=== PATIENT | male | born 1955 | race African-American/Black ===

== ENCOUNTER 2019-11-30 10:13 | Emergency (ER) | payer MEDICARE ==
[2019-11-30 11:59] LABS: Hemoglobin 13.9 g/dL (14.0-18.0); Mean Corpuscular HGB CONC 32.7 g/dL (32.0-36.0); Mean Corpuscular Hemoglobin 28.3 pg (27.0-31.0); Mean Corpuscular Volume 86.5 fL (78.0-98.0); Mean Platelet Volume 8.8 fL (7.4-10.4); Platelet Count 281 thou/uL (130-400); RBC Distribution Width 12.7 % (11.5-14.5); Red Blood Cell (RBC) Count 4.93 mill/uL (4.70-6.10); White Blood Cell (WBC) Count 6.8 thou/uL (4.8-10.8)
[2019-11-30 12:08] LABS: PTT 28.3 sec (22.9-36.1); Prothrombin Time 13.5 sec (12.0-14.7)
[2019-11-30 12:24] LABS: ALT (SGPT) 20 U/L (8-55); AST (SGOT) 23 U/L (5-34); Albumin 3.5 g/dL (3.4-4.8); Alkaline Phosphatase 161 U/L (40-110); Anion Gap 10 mmol/L (10-20); BUN (Urea Nitrogen) 14 mg/dL (8.4-25.7); Bilirubin, Total 0.5 mg/dL (0.2-1.2); Calc. Creatinine Clearance 0 mL/min (70-130); Carbon Dioxide 28 mmol/L (23-31); Chloride 104 mmol/L (98-107); Estimated GFR-MDRD 54; Globulin 3.2 g/dL (2.4-3.5); Glucose 238 mg/dL (80-115); Potassium 3.5 mmol/L (3.5-5.1); Protein, Total 6.7 g/dL (5.8-8.1); Sodium 138 mmol/L (136-145)
[2019-11-30 12:30] LABS: Eosinophils 3 % (0-10); Lymphocytes 47 % (21-51); MDiff Complete? YES; Monocytes 10 % (0-10); Neutrophil 36 % (42-75); Platelet Morphology Comment Appears Adequate; RBC Morphology Normal; Reactive Lymphocytes 1 % (0-10)
[2019-11-30] MEDS ORDERED: Iopamidol-370 76% 500 ML 1 ML ONE (13:22)
--- NOTE | 2019-11-30 13:42 | CT ---
EXAM: CT ANGIOGRAM OF THE HEAD AND NECK INDICATION: Dizziness. Patient is on antihypertensive medication. COMPARISON: 11/26/2015 TECHNIQUE: CT angiogram of the head and neck are performed in the axial plane. Three-dimensional refo rmatted images are submitted for interpretation. FINDINGS: NONCONTRAST HEAD CT: No parenchymal hemorrhage No extra-axial hematoma No midline shift Basilar cisterns are patent Brain volume, age-appropriate Cortical rutledge-white matter differentiation is preserved No hydrocephalus Remote lacunar infarct in the right caudate nucleus. Intact calvarium Adequate aeration of the sinuses and mastoid air cells CTA OF THE HEAD WITH AND WITHOUT CONTRAST: POSTCONTRAST CT OF BRAIN: Pathologic enhancement: No pathologic enhancement the brain. Postcontrast soft tissue neck CT: Aerodigestive tract:Aerodigestive tract is patent. No mucosal abnormality. Sinuses: Adequate aeration. Orbits: Bilateral ocular lenses are appropriately located. Both globes are intact. Retrobulbar fat is preserved. Symmetric attenuation the optic nerves and ocular rectus muscles. Salivary glands:Symmetric attenuation Thyroid gland: Appropriate attenuation. Nonspecific fullness of the thyroid isthmus. Nonemergent ultr asound Lymph nodes: No evidence of lymphadenopathy by size criteria. Paraspinal muscles: Symmetric attenuation of the sternocleidomastoid muscles. Appropriate attenuation of the paraspinal muscles. Cervical spine:Multilevel loss of disc space height and osteophyte formation at C3-C4, C4-C5, C5-C6, C6-C7 and C7-T1. Cervical spine vertebral body heights are maintained. No fracture. There are varying degrees of central canal stenosis and neural foraminal narrowing on the basis of degenerative change. Upper mediastinum and lung apices: Chronic changes CTA OF THE NECK WITH CONTRAST: Aorta: Appropriate enhancement and luminal diameter of the aortic arch Right carotid artery: Appropriate enhancement and luminal diameter the origin of the right carotid ar natalie, innominate artery, carotid bifurcation and internal carotid artery. No significant stenosis based upon NASCET criteria Left carotid: Appropriate enhancement and luminal diameter the origin left carotid artery, common car otid artery, carotid bifurcation and internal carotid artery. There is mild atherosclerotic disease in the left carotid bifurcation. No significant stenosis based upon NASCET criteria. Subclavian arteries:Symmetric and patent Vertebral arteries:Patent throughout their course in the neck. Vertebral arteries are codominant. CTA OF THE BRAIN: Intracranial internal carotid arteries:Appropriate enhancement and luminal diameter Anterior circulation: Appropriate enhancement and luminal diameter the A1 segment, M1 segments, proxi mal A2 segments and proximal MCA branches. Intracranial vertebral arteries: Both PICA artery origins have a normal appearance. Both vertebral ar teries supply a diminutive basilar artery. Posterior circulation: Basilar artery is patent. The left [employer]EVELOPMENT MANAGER has a origin. Right P1 segment is patent. IMPRESSION: 1. No hemodynamically significant stenosis, occlusion or aneurysmal formation.
[2019-11-30] MEDS ORDERED: Lisinopril 20 MG TAB PO SCH (14:00)
[2019-11-30] MEDS ORDERED: Amlodipine 5 MG TAB PO SCH (14:00)
--- NOTE | 2019-12-03 14:07 | CT ---
EXAM: CT ANGIOGRAM OF THE HEAD AND NECK INDICATION: Dizziness. Patient is on antihypertensive medication. COMPARISON: 11/26/2015 TECHNIQUE: CT angiogram of the head and neck are performed in the axial plane. Three-dimensional refo rmatted images are submitted for interpretation. FINDINGS: NONCONTRAST HEAD CT: No parenchymal hemorrhage No extra-axial hematoma No midline shift Basilar cisterns are patent Brain volume, age-appropriate Cortical rutledge-white matter differentiation is preserved No hydrocephalus Remote lacunar infarct in the right caudate nucleus. Intact calvarium Adequate aeration of the sinuses and mastoid air cells CTA OF THE HEAD WITH AND WITHOUT CONTRAST: POSTCONTRAST CT OF BRAIN: Pathologic enhancement: No pathologic enhancement the brain. Postcontrast soft tissue neck CT: Aerodigestive tract:Aerodigestive tract is patent. No mucosal abnormality. Sinuses: Adequate aeration. Orbits: Bilateral ocular lenses are appropriately located. Both globes are intact. Retrobulbar fat is preserved. Symmetric attenuation the optic nerves and ocular rectus muscles. Salivary glands:Symmetric attenuation Thyroid gland: Appropriate attenuation. Nonspecific fullness of the thyroid isthmus. Nonemergent ultr asound Lymph nodes: No evidence of lymphadenopathy by size criteria. Paraspinal muscles: Symmetric attenuation of the sternocleidomastoid muscles. Appropriate attenuation of the paraspinal muscles. Cervical spine:Multilevel loss of disc space height and osteophyte formation at C3-C4, C4-C5, C5-C6, C6-C7 and C7-T1. Cervical spine vertebral body heights are maintained. No fracture. There are varying degrees of central canal stenosis and neural foraminal narrowing on the basis of degenerative change. Upper mediastinum and lung apices: Chronic changes CTA OF THE NECK WITH CONTRAST: Aorta: Appropriate enhancement and luminal diameter of the aortic arch Right carotid artery: Appropriate enhancement and luminal diameter the origin of the right carotid ar natalie, innominate artery, carotid bifurcation and internal carotid artery. No significant stenosis based upon NASCET criteria Left carotid: Appropriate enhancement and luminal diameter the origin left carotid artery, common car otid artery, carotid bifurcation and internal carotid artery. There is mild atherosclerotic disease in the left carotid bifurcation. No significant stenosis based upon NASCET criteria. Subclavian arteries:Symmetric and patent Vertebral arteries:Patent throughout their course in the neck. Vertebral arteries are codominant. CTA OF THE BRAIN: Intracranial internal carotid arteries:Appropriate enhancement and luminal diameter Anterior circulation: Appropriate enhancement and luminal diameter the A1 segment, M1 segments, proxi mal A2 segments and proximal MCA branches. Intracranial vertebral arteries: Both PICA artery origins have a normal appearance. Both vertebral ar teries supply a diminutive basilar artery. Posterior circulation: Basilar artery is patent. The left AUT[employer] TRAV[employer] COUNSELOR has a origin. Right P1 segment is patent. IMPRESSION: 1. No hemodynamically significant stenosis, occlusion or aneurysmal formation. Transcribed Date/Time: 12/03/2019 2:06 PM
== END 2019-11-30 14:35 | disposition left against medical advice (07) ==
LOC: ERS 10:13
DX: R42 Dizziness and giddiness (principal); E78.5 Hyperlipidemia, unspecified; E11.9 Type 2 diabetes mellitus without complications; I10 Essential (primary) hypertension; F17.210 Nicotine dependence, cigarettes, uncomplicated; Z79.4 Long term (current) use of insulin; Z79.899 Other long term (current) drug therapy
CPT/HCPCS: 36415; 36416; 70496; 70498; 80053; 84484; 85025; 85610; 85730; 93005; Q9967

== ENCOUNTER 2020-02-29 21:55 | Inpatient (IN) | payer MEDICARE ==
[2020-02-29 22:27] LABS: #Basophils 0.1 thou/uL (0.0-0.2); #Eosinphils 0.3 thou/uL (0.0-0.7); #Lymphocytes 2.9 thou/uL (1.20-3.40); #Neutrophils 2.7 thou/uL (1.40-6.50); %Basophils 1.6 % (0.0-1.0); %Monocytes 13.7 % (0.0-10.0); %Neutrophils 38.7 % (42.0-75.0); Hemoglobin 13.8 g/dL (14.0-18.0); Mean Corpuscular HGB CONC 32.9 g/dL (32.0-36.0); Mean Corpuscular Hemoglobin 28.4 pg (27.0-31.0); Mean Corpuscular Volume 86.3 fL (78.0-98.0); Mean Platelet Volume 9.1 fL (7.4-10.4); Platelet Count 296 thou/uL (130-400); Red Blood Cell (RBC) Count 4.84 mill/uL (4.70-6.10)
[2020-02-29 22:49] LABS: Albumin 3.5 g/dL (3.4-4.8); Alkaline Phosphatase 190 U/L (40-110); Anion Gap 12 mmol/L (10-20); BUN (Urea Nitrogen) 21 mg/dL (8.4-25.7); Bilirubin, Total 0.3 mg/dL (0.2-1.2); Calc. Creatinine Clearance 0 mL/min (70-130); Calcium 8.8 mg/dL (7.8-10.44); Carbon Dioxide 26 mmol/L (23-31); Chloride 106 mmol/L (98-107); Globulin 3.2 g/dL (2.4-3.5); Glucose 123 mg/dL (80-115); Potassium 3.8 mmol/L (3.5-5.1); Protein, Total 6.7 g/dL (5.8-8.1); Sodium 140 mmol/L (136-145)
[2020-02-29 22:50] LABS: ALT (SGPT) 19 U/L (8-55); AST (SGOT) 19 U/L (5-34); Lipase 305 U/L (8-78)
[2020-02-29 23:14] LABS: Bacteria/HPF None Seen HPF (None Seen); Bilirubin Negative (Negative); Blood, Urine Trace (Negative); Clarity Clear (Clear); Glucose, Urine (Dipstick) Normal (Negative); Ketone, Urine Negative (Negative); Leukocyte Negative Leu/uL (Negative); Nitrite Negative (Negative); Protein, Urine (Dipstick) 30 mg/dL (Neg-Trace); RBC/HPF 0-3 HPF (0-3); Specific Gravity, Urine 1.013 (1.002-1.036); Squamous Epithelial 0-3 HPF (0-3); Urobilinogen Normal mg/dL (Less than 2); WBC/HPF None Seen HPF (0-3); pH, Urine 5.5 (5.0-9.0)
[2020-02-29] MEDS ORDERED: Morphine 4 MG/ML VIAL ONE (23:23)
--- NOTE | 2020-02-29 23:43 | CT ---
CT ABDOMEN AND PELVIS WITH IV CONTRAST 02/29/2020 CLINICAL INFORMATION: Diffuse abdomen and back pain. COMPARISON: CTA chest on 10/13/2012 Technique: Multiple contiguous axial CT images are obtained through the abdomen and pelvis with IV contrast. Cor onal reformatted images are provided. FINDINGS: Lower Chest: Minimal dependent atelectasis. Vessels: Vascular calcifications are present in the abdominal aorta and iliac arteries. Abdomen: Portal vein:Not well opacified due to phase of imaging. Gallbladder: Within normal limits for CT imaging. Liver: Normal in appearance for phase of imaging. There is suggestion of a subcentimeter too small to characterize hypodense lesion in the caudate lobe of the liver. This is unchanged compared to CTA chest in 2013. 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 Pancreas: within normal limits. Adrenals: Left adrenal nodule is again seen and unchanged in size or appearance compared to study in 2013. Kidneys: Subcentimeter too small to characterize hypodense lesions in the right kidney. Left kidney h as a normal CT appearance for phase of imaging. Bowel: Postoperative changes of the bowel with evidence of partial colectomy. Postoperative changes o f the rectum are seen. Peritoneum: No ascites or free air; no fluid collection. Mesentery and Retroperitoneum: No enlarged mesenteric or retroperitoneal lymph nodes. Abdominal Wall: Suggestion of a tiny ventral abdominal wall incisional hernia the level of the upper pelvis with portion of the wall of small bowel extending into the defect. Pelvis: Reproductive Organs: Prostate gland is enlarged measuring 5.9 cm in transverse dimensions. Bladder: Incompletely distended. Bones: Degenerative changes in the lumbar spine. There is grade 1 anterolisthesis of L4 on L5 related to facet degenerative changes. IMPRESSION: 1. No acute findings in the abdomen or pelvis. 2. Postoperative changes of loops of bowel as well as evidence of splenectomy 3. Suggestion of small incisional hernia at the level of the upper pelvis containing portion of a ant erior wall of a loop of bowel. No bowel obstruction is present. 4. Enlargement of the prostate gland. 5. Stable left adrenal nodule.
[2020-03-01] MEDS: Sodium Chloride 0.9% 1,000 ML IV SCH ×3 (02:30→12:55)
[2020-03-01 02:32] VITALS: BMI 25.1
[2020-03-01] MEDS ORDERED: Morphine 4 MG/ML VIAL SLOW IVP PRN (02:39)
[2020-03-01] MEDS ORDERED: Sodium Chloride 0.9% 1,000 ML IV SCH (02:45)
[2020-03-01] MEDS ORDERED: HYDROcodone/Acetaminophen 5/325 mg Tablet PO PRN (02:45)
[2020-03-01] MEDS ORDERED: Ondansetron ODT 4 MG TAB SL PRN (02:45)
[2020-03-01] MEDS ORDERED: Acetaminophen 325 MG TAB PO PRN (02:45)
[2020-03-01] MEDS ORDERED: Ondansetron PF 4 MG/2 ML Vial IVP PRN (02:45)
--- NOTE | 2020-03-01 02:51 | PDOC.HHP ---
Hospitalist HPI - History of Present Illness abdominal pain History of Present Illness: Case of an 64y/o male with a pmhx of DM htn and hld who comes to hospital due to abdominal pain. Patient states he was on his usual state of health until yesterday when he started with some abdominal pain 7/10 on intensity, constant, pain is located on epigastric and LLQ area and radiates to the back. Patient has had some nausea without vomiting. Patient states that eating does not make the pain worse. Patient does not have any diarrhea. Patient denies any alcohol use or gallbladder problem history. Patient has multiple surgeries on his abdomen to include a splenectomy and hemicolectomy. Hospitalist ROS - Review of Systems All other systems reviewed; all pertinent +/- noted in HPI/Subj Hospitalist History - Past Surgical History Other Surgical History: splenectomy , colon resection - Family History Family History: reports: diabetes mellitus, hypertension - Social History Smoking Status: Current every day smoker Drugs: reports: marijuana Living Situation: With Family - Exam General Appearance: NAD, awake alert Eye: PERRL, anicteric sclera ENT: normocephalic atraumatic, no oropharyngeal lesions Neck: supple, symmetric, no JVD Heart: RRR, no murmur, no gallops Respiratory: CTAB, no wheezes, no rales Gastrointestinal: soft, non-tender, non-distended Extremities: no cyanosis, no clubbing, no edema Skin: normal turgor, no lesions, no rashes Neurological: cranial nerve grossly intact, normal sensation to touch Musculoskeletal: normal tone, normal strength, no muscle wasting Psychiatric: normal affect, normal behavior, A&O x 3 Hospitalist Results - Labs Result Diagrams: 02/29/20 22:10 02/29/20 22:10 Lab results: WBC 7.0 thou/uL (4.8-10.8) 02/29/20 22:10 Hgb 13.8 g/dL (14.0-18.0) L 02/29/20 22:10 Hct 41.8 % (42.0-52.0) L 02/29/20 22:10 MCV 86.3 fL (78.0-98.0) 02/29/20 22:10 Plt Count 296 thou/uL (130-400) 02/29/20 22:10 Neutrophils % 38.7 % (42.0-75.0) L 02/29/20 22:10 Sodium 140 mmol/L (136-145) 02/29/20 22:10 Potassium 3.8 mmol/L (3.5-5.1) 02/29/20 22:10 Chloride 106 mmol/L (98-107) 02/29/20 22:10 Carbon Dioxide 26 mmol/L (23-31) 02/29/20 22:10 BUN 21 mg/dL (8.4-25.7) 02/29/20 22:10 Creatinine 1.50 mg/dL (0.7-1.3) H 02/29/20 22:10 Glucose 123 mg/dL (80-115) H 02/29/20 22:10 Calcium 8.8 mg/dL (7.8-10.44) 02/29/20 22:10 Total Bilirubin 0.3 mg/dL (0.2-1.2) 02/29/20 22:10 AST 19 U/L (5-34) 02/29/20 22:10 ALT 19 U/L (8-55) 02/29/20 22:10 Alkaline Phosphatase 190 U/L (40-110) H 02/29/20 22:10 Serum Total Protein 6.7 g/dL (5.8-8.1) 02/29/20 22:10 Albumin 3.5 g/dL (3.4-4.8) 02/29/20 22:10 Lipase 305 U/L (8-78) H 02/29/20 22:10 Urine Ketones Negative mg/dL (Negative) 02/29/20 23:02 Urine Blood Trace (Negative) A 02/29/20 23:02 Urine Nitrite Negative (Negative) 02/29/20 23:02 Ur Leukocyte Esterase Negative Kay/uL (Negative) 02/29/20 23:02 Urine RBC 0-3 HPF (0-3) 02/29/20 23:02 Urine WBC None Seen HPF (0-3) 02/29/20 23:02 Ur Squamous Epith Cells 0-3 HPF (0-3) 02/29/20 23:02 Urine Bacteria None Seen HPF (None Seen) 02/29/20 23:02 Hospitalist H&P A/P - Problem (1) Pancreatitis Code(s): K85.90 - ACUTE PANCREATITIS WITHOUT NECROSIS OR INFECTION, UNSP Status: Acute (2) DM type 2 (diabetes mellitus, type 2) Status: Acute (3) HLD (hyperlipidemia) Code(s): E78.5 - HYPERLIPIDEMIA, UNSPECIFIED Status: Acute (4) Hypertension Code(s): I10 - ESSENTIAL (PRIMARY) HYPERTENSION Status: Acute - Plan Plan: Case of an 64y/o male with the stated pmhx who presents with pancreatitis pancreatitis - elevated lipase in the 300s, 3 times from base - ivfs - pain management - npo - unclear etiology, normal gallballder on abd ct - no recent hx of alcohol use - will get lipid panel - abb ct showed no acute pathology dm - acc+ss htn / hld - continue home meds when able to tolerate po
[2020-03-01] MEDS ORDERED: Dextrose 50% Abboject 50 ML SYRINGE SLOW IVP PRN (02:55)
[2020-03-01] MEDS ORDERED: Dextrose 5% in Water 1,000 ML IV PRN (02:55)
[2020-03-01] MEDS ORDERED: HumaLOG 300 UNITS/3 ML VIAL SC PRN (02:55)
[2020-03-01 06:34] LABS: Cardiac Risk 2.2 (Less than 4.5)
[2020-03-01] MEDS: Enoxaparin Sodium 40 MG/0.4 ML SYRINGE SC SCH (08:06)
[2020-03-01] MEDS: Famotidine/PF 20 mg/2ml Vial SLOW IVP SCH ×2 (08:07→20:03)
[2020-03-01] MEDS ORDERED: FLU VACC QS2020-21(6MOS UP)/PF 60 MCG/0.5 ML SYRINGE IM ONE (09:00)
[2020-03-01 10:16] LABS: SARS-CoV-2 MS2 Positive; SARS-CoV-2 N Gene Negative; SARS-CoV-2 S Gene Negative; SARS-CoV-2 by NAA Not Detected (NotDetected); SARS-CoV-2 orf1ab Negative
[2020-03-01] MEDS ORDERED: PROVENTIL INHALER 6.7 G (200 INHALATIONS) INH PRN (11:21)
[2020-03-01] MEDS ORDERED: Amlodipine 10 MG TAB PO SCH (11:30)
[2020-03-01] MEDS ORDERED: Lisinopril/Hydrochlorothiazide 20 mg/12.5 mg Tablet PO SCH (11:30)
[2020-03-01] MEDS: HYDROcodone/Acetaminophen 5/325 mg Tablet PO PRN ×2 (12:53→20:07)
[2020-03-01] MEDS ORDERED: cloNIDine 0.1 MG TAB PO PRN (16:53)
[2020-03-01] MEDS ORDERED: hydrALAZINE 20 MG/ML VIAL SLOW IVP PRN (16:53)
[2020-03-01] MEDS: Morphine 2 MG/ML VIAL SLOW IVP PRN (17:14)
--- NOTE | 2020-03-01 20:30 | PDOC.HOSPP ---
- Subjective Encounter Date: 03/01/20 Encounter Time: 11:00 Subjective: Patient seen and examined for acute pancreatitis. Continues to have abdominal pain without any nausea or vomiting. No bowel movements. No fever, chills or jaundice reported. - Objective Vital Signs & Weight: Vital Signs (12 hours) Temp Pulse Resp BP BP Pulse Ox 03/01/20 20:00 173/93 H 03/01/20 17:14 195/98 H 03/01/20 15:35 98.7 F 69 18 198/95 H 98 03/01/20 12:55 63 03/01/20 12:54 63 192/109 H 03/01/20 12:00 98 03/01/20 11:05 98.6 F 68 18 192/109 H 96 Weight Admit Weight 165 lb 8 oz Weight 165 lb 8 oz I&O: 02/29/20 03/01/20 03/02/20 06:59 06:59 06:59 Intake Total 530 1170 Output Total 300 2500 Balance 230 -1330 Result Diagrams: 02/29/20 22:10 02/29/20 22:10 Additional Labs: Accuchecks 03/01/20 03/01/20 03/01/20 18:34 12:20 06:36 POC Glucose 133 H 101 H 103 H Abnormal Lab Results - Last 48 hrs 02/29/20 22:10: Creatinine 1.50 H, Alkaline Phosphatase 190 H, Albumin/Globulin Ratio 1.1 L, Lipase 305 H 02/29/20 22:10: Hgb 13.8 L, Hct 41.8 L, Neutrophils % 38.7 L, Monocytes % 13.7 H, Basophils % 1.6 H, Monocytes # 1.0 H 02/29/20 23:02: Urine Protein 30 A, Urine Blood Trace A Radiology Reviewed by me: Yes (CT abdomenreviewed) Hospitalist ROS - Review of Systems Respiratory: denies: cough, dry, shortness of breath, hemoptysis, SOB with excertion, pleuritic pain, sputum, wheezing, other Cardiovascular: denies: chest pain, palpitations, orthopnea, paroxysmal noc. dy spnea, edema, light headedness, other - Medication Medications: Active Medications Generic Name Dose Route Start Last Admin Trade Name Freq PRN Reason Stop Dose Admin Hydrocodone Bitart/Acetaminophen 1 tab 03/01/20 02:45 03/01/20 20:07 Hydrocodone/Acetaminophen 5/325 Mg Tablet PO 1 tab Q4H PRN Administration Moderate Pain (4-6) Hydrocodone Bitart/Acetaminophen 2 tab 03/01/20 02:45 03/01/20 03:42 Hydrocodone/Acetaminophen 5/325 Mg Tablet PO 2 tab Q4H PRN Administration Severe Pain (7-10) Clonidine 0.1 mg 03/01/20 16:53 03/01/20 17:14 Clonidine 0.1 Mg Tab PO 0.1 mg Q4H PRN Administration SBP Greater Than 180 Enoxaparin Sodium 40 mg 03/01/20 09:00 03/01/20 08:06 Enoxaparin Sodium 40 Mg/0.4 Ml Syringe SC 40 mg 0900 NOAH Administration Famotidine 20 mg 03/01/20 09:00 03/01/20 20:03 Famotidine/Pf 20 Mg/2ml Vial SLOW IVP 20 mg Q12HR NOAH Administration Sodium Chloride 1,000 mls @ 75 mls/hr 03/01/20 11:20 03/01/20 12:55 Normal Saline 0.9% IV 1,000 mls .[id number] NOAH Administration Morphine Sulfate 2 mg 03/01/20 16:53 03/01/20 17:14 Morphine 2 Mg/Ml Vial SLOW IVP 03/03/20 16:54 2 mg Q4H PRN Administration Severe Pain (7-10) - Exam General - other findings: In distress due to abdominal pain Heart: RRR, no gallops, no rubs, normal peripheral pulses Respiratory: no wheezes, no rales, no ronchi, normal chest expansion Gastrointestinal: soft, normal bowel sounds, no guarding, no rigidity, tender to palpation Extremities: no cyanosis, no clubbing, no edema Extremities - other findings: No Calf tenderness Neurological: no new deficit Psychiatric: normal affect, A&O x 3 Hosp A/P - Plan DVT proph w/SCDs Acute pancreatitis of unclear etiology Hypertension-uncontrolled Left adrenal nodule Diabetes mellitus type II Hypertension Hyperlipidemia CKD stage III Plan: Continue IV fluidsreduced rate. Restart amlodipine, lisinopril due to uncontro lled blood pressure. Pain control. Prn antihypertensives. Gallbladder ultrasound in AM. Recheck lipase in a.m. Continue other medications as above.
[2020-03-02] MEDS: Sodium Chloride 0.9% 1,000 ML IV SCH (00:48)
[2020-03-02] MEDS ORDERED: Ondansetron PF 4 MG/2 ML Vial IVP PRN (02:24)
[2020-03-02] MEDS: Morphine 2 MG/ML VIAL SLOW IVP PRN (02:40)
[2020-03-02 06:48] LABS: Hemoglobin 14.6 g/dL (14.0-18.0); Mean Corpuscular HGB CONC 30.4 g/dL (32.0-36.0); Mean Corpuscular Hemoglobin 25.9 pg (27.0-31.0); Mean Corpuscular Volume 85.4 fL (78.0-98.0); Mean Platelet Volume 9.4 fL (7.4-10.4); Platelet Count 321 thou/uL (130-400); RBC Distribution Width 12.9 % (11.5-14.5)
--- NOTE | 2020-03-02 07:37 | ULT ---
Sonogram right upper quadrant HISTORY: Pancreatitis. Right upper quadrant pain. FINDINGS: Gallbladder has a normal appearance. No stones visible. Common duct is 0.4 cm. Liver has a normal appearance without focal mass or intrahepatic biliary dilatation. No free fluid. Small right renal cyst incidentally noted. IMPRESSION : No acute abnormalities are demonstrated.
[2020-03-02 07:43] LABS: Chloride 107 mmol/L (98-107); Sodium 139 mmol/L (136-145)
[2020-03-02 07:44] LABS: Anion Gap 21 mmol/L (10-20); BUN (Urea Nitrogen) 12 mg/dL (8.4-25.7); Bilirubin, Total 0.7 mg/dL (0.2-1.2); Calc. Creatinine Clearance 59 mL/min (70-130); Calcium 9.3 mg/dL (7.8-10.44); Carbon Dioxide 15 mmol/L (23-31); Glucose 122 mg/dL (80-115); Protein, Total 6.9 g/dL (5.8-8.1)
[2020-03-02 07:45] LABS: ALT (SGPT) 17 U/L (8-55); AST (SGOT) 22 U/L (5-34); Albumin 3.3 g/dL (3.4-4.8); Alkaline Phosphatase 149 U/L (40-110); Globulin 3.6 g/dL (2.4-3.5); Magnesium 1.6 mg/dL (1.6-2.6); Phosphorus 3.1 mg/dL (2.3-4.7)
[2020-03-02 07:46] LABS: Lipase 35 U/L (8-78)
[2020-03-02] MEDS ORDERED: Lisinopril/Hydrochlorothiazide 20 mg/12.5 mg Tablet PO SCH (09:00)
[2020-03-02] MEDS ORDERED: Aspirin 81 mg Enteric Coated Tablet PO SCH (09:00)
[2020-03-02] MEDS ORDERED: Amlodipine 10 MG TAB PO SCH (09:00)
[2020-03-02] MEDS: Famotidine/PF 20 mg/2ml Vial SLOW IVP SCH (09:02)
[2020-03-02] MEDS: Enoxaparin Sodium 40 MG/0.4 ML SYRINGE SC SCH (09:03)
[2020-03-02 09:38] LABS: Band 1 % (5-11); Eosinophils 2 % (0-10); Lymphocytes 24 % (21-51); MDiff Complete? YES; Monocytes 6 % (0-10); Neutrophil 66 % (42-75); Platelet Morphology Comment Appears Adequate; RBC Morphology Normal; Red Blood Cell (RBC) Count 5.64 mill/uL (4.70-6.10); White Blood Cell (WBC) Count 8.3 thou/uL (4.8-10.8)
[2020-03-02] MEDS ORDERED: Sodium Chloride 0.9% 1,000 ML IV SCH (10:44)
[2020-03-02 12:30] VITALS: TEMP 98.2
[2020-03-02 13:28] VITALS: BP 166/86
[2020-03-02] MEDS ORDERED: Famotidine 20 MG TAB PO SCH (21:00)
--- NOTE | 2020-03-03 08:01 | PDOC.DS.DS ---
Provider - Provider Date of Admission: 03/01/20 11:14 Date of Discharge: 03/02/20 Admitting Provider: Isiah Chavira Consultations: None Primary Care Physician: OUT OF TOWN Course - Hospital Course Hospital Course: Patient is a 64-year-old male with diabetes mellitus type 2, hypertension and hyperlipidemia presented to the hospital with abdominal discomfort on 03/01. The abdominal pain was epigastric, moderate in intensity radiating to his back. His lipase on admission was 305 with alkaline phosphatase of 305. His triglycerides were normal. He was kept n.p.o. and was started on IV fluids. His pain was controlled with IV narcotics. CT abdomen was negative for acute findings. Right upper quadrant ultrasound was negative for cholelithiasis. Common duct was 0.4 cm. Abdominal pain has resolved. His lipase was 35. Etiology of p ancreatitis appears to be unclear. He was advised to follow-up with gastroenterology as outpatient. His symptoms improved earlier than anticipated. He was also advised to follow-up with general surgery as outpatient due to history of abdominal surgery in the past. He understands above plan of care. Patient was provided 1 month supply of insulin and hypertension medications since he is currently out of all of his medications. Final diagnosis: Acute pancreatitis of unclear etiology Hypertension-uncontrolled Left adrenal nodule Diabetes mellitus type II Hypertension Hyperlipidemia CKD stage III Resuscitation Status: 03/01/20 02:45 Resuscitation Status Routine Resuscitation Status: FULL: Full Resuscitation - Labs Lab Results: 03/02/20 05:58 03/02/20 05:58 Abnormal Lab Results - Last 48 hrs 03/02/20 05:58: Carbon Dioxide 15 L, Anion Gap 21 H, Creatinine 1.35 H, Alkaline Phosphatase 149 H, Albumin 3.3 L, Globulin 3.6 H, Albumin/Globulin Ratio 0.9 L 03/02/20 05:58: MCH 25.9 L, MCHC 30.4 L, Band Neuts % (Manual) 1 L - Physical Exam Vitals: Weight Admit Weight 165 lb 8 oz Weight 165 lb 8 oz Physical Exam: The patient was seen and examined on the day of discharge. Plan - Discharge Medications Prescriptions: Amlodipine Besylate [amLODIPine Besylate] 10 mg PO DAILY #30 tablet Aspirin [Aspirin EC] 81 mg PO DAILY #30 tablet. Lisinopril/Hydrochlorothiazide [Lisinopril-Hctz 20-12.5 mg Tab] 1 tablet PO DAILY #30 tablet Insulin NPH Hum/Reg Insulin HM [Novolin 70/30] 10 unit SC TID-WM #1 vial Simvastatin [Zocor] 20 mg PO HS #30 tab Home Medications: Medication Instructions Recorded Confirmed Type Albuterol Sulfate [Proair HFA] 2 puff INH Q4HR PRN #0 inh 16 03/01/20 Rx Amlodipine Besylate [amLODIPine 10 mg PO DAILY #30 tablet 03/02/20 Rx Besylate] Aspirin [Aspirin EC] 81 mg PO DAILY #30 tablet. 03/02/20 Rx Insulin NPH Hum/Reg Insulin HM 10 unit SC TID-WM #1 vial 03/02/20 Rx [Novolin 70/30] Lisinopril/Hydrochlorothiazide 1 tablet PO DAILY #30 tablet 03/02/20 Rx [Lisinopril-Hctz 20-12.5 mg Tab] Simvastatin [Zocor] 20 mg PO HS #30 tab 03/02/20 Rx Allergies: No Known Allergies Allergy (Verified 10/06/14 14:03) - Discharge Instructions Discharge Instructions:: BMP after 1 week - PCP to arrange/follow Follow up with general surgery in 1 week - Follow up Plan Referrals: Fernie South MD [Active] - 7 Days (Please call the office to schedule an appointment within 7 days. ) [facility] [MD Not on Staff] - 7 Days (Please call the office to schedule an appointment within 7 days.) Disposition: HOME Quality - Care Measures CORE MEASURES:: N/A
== END 2020-03-02 15:55 | disposition home or self-care (01) | DRG 440 ==
LOC: ERS 21:55 → T4-A 03-01 00:19 → OBSVTOIN 03-01 11:14
PROVIDERS: ADMIT Internal Medicine; ATTEND Internal Medicine
DX: K85.90 Acute pancreatitis without necrosis or infection, unspecified (principal); E11.22 Type 2 diabetes mellitus with diabetic chronic kidney disease; I12.9 Hypertensive chronic kidney disease with stage 1 through stage 4 chronic kidney disease, or unspecified chronic kidney disease; E78.5 Hyperlipidemia, unspecified; F17.200 Nicotine dependence, unspecified, uncomplicated; E27.8 Other specified disorders of adrenal gland; N18.30 Chronic kidney disease, stage 3 unspecified; Z90.49 Acquired absence of other specified parts of digestive tract; Z79.4 Long term (current) use of insulin; Z79.899 Other long term (current) drug therapy; Z20.822 Contact with and (suspected) exposure to COVID-19
CPT/HCPCS: 36415; 36416; 74177; 76705; 80053; 80061; 81003; 81015; 83690; 83735; 84100; 85025; 87635; 96372; 96374; 96375; G0378; J0360; J1650; J2270; J2405; S0028; U0003

== ENCOUNTER 2020-07-10 11:07 | Inpatient (IN) | payer MEDICARE ==
[2020-07-10 12:00] LABS: #Basophils 0.1 thou/uL (0.0-0.2); #Monocytes 0.9 thou/uL (0.11-0.59); #Neutrophils 3.4 thou/uL (1.40-6.50); %Basophils 0.9 % (0.0-1.0); %Eosinophils 0.2 % (0.0-10.0); %Lymphocytes 31.4 % (21.0-51.0); %Monocytes 13.7 % (0.0-10.0); %Neutrophils 53.8 % (42.0-75.0); Hemoglobin 14.8 g/dL (14.0-18.0); Mean Corpuscular HGB CONC 32.9 g/dL (32.0-36.0); Mean Corpuscular Hemoglobin 28.5 pg (27.0-31.0); Mean Corpuscular Volume 86.7 fL (78.0-98.0); Platelet Count 197 thou/uL (130-400); RBC Distribution Width 12.9 % (11.5-14.5); Red Blood Cell (RBC) Count 5.21 mill/uL (4.70-6.10); White Blood Cell (WBC) Count 6.4 thou/uL (4.8-10.8)
[2020-07-10] MEDS ORDERED: Ketorolac Tromethamine 30 MG/ML VIAL ONE (12:07)
[2020-07-10] MEDS ORDERED: Ondansetron PF 4 MG/2 ML Vial ONE (12:07)
[2020-07-10 12:26] LABS: ALT (SGPT) 14 U/L (8-55); AST (SGOT) 25 U/L (5-34); Albumin 3.6 g/dL (3.4-4.8); Alkaline Phosphatase 127 U/L (40-110); Anion Gap 15 mmol/L (10-20); BUN (Urea Nitrogen) 22 mg/dL (8.4-25.7); Bilirubin, Total 0.5 mg/dL (0.2-1.2); Calc. Creatinine Clearance 0 mL/min (70-130); Calcium 9.2 mg/dL (7.8-10.44); Carbon Dioxide 21 mmol/L (23-31); Chloride 103 mmol/L (98-107); Globulin 3.7 g/dL (2.4-3.5); Glucose 133 mg/dL (80-115); Lipase 51 U/L (8-78); Potassium 4.3 mmol/L (3.5-5.1); Protein, Total 7.3 g/dL (5.8-8.1); Sodium 135 mmol/L (136-145)
[2020-07-10 12:42] LABS: CKMB 2.4 ng/mL (0-6.6)
[2020-07-10] MEDS ORDERED: Aspirin Chewable 81 MG TAB ONE (13:54)
[2020-07-10] MEDS ORDERED: hydrALAZINE 20 MG/ML VIAL ONE (13:54)
[2020-07-10] MEDS ORDERED: Iopamidol-370 76% 500 ML 1 ML ONE (14:52)
[2020-07-10 15:32] LABS: Troponin I 0.089 ng/mL (< 0.028)
[2020-07-10] MEDS ORDERED: Dextrose 5% in Water 1,000 ML IV PRN (16:01)
[2020-07-10] MEDS ORDERED: Nitroglycerin 0.4 MG TAB (25 Tab Bottle) SL PRN (16:01)
[2020-07-10] MEDS ORDERED: Dextrose 50% Abboject 50 ML SYRINGE SLOW IVP PRN (16:01)
[2020-07-10] MEDS ORDERED: Sodium Chloride 0.9% 1,000 ML IV SCH (16:15)
[2020-07-10] MEDS: Labetalol HCl 100 MG/20 ML VIAL SLOW IVP PRN ×2 (16:26→20:19)
[2020-07-10] MEDS ORDERED: traMADol HCl 50 MG TAB PO SCH (16:30)
[2020-07-10] MEDS: Sodium Chloride 0.9% 1,000 ML IV SCH (18:00)
[2020-07-10 18:35] LABS: Troponin I 0.074 ng/mL (< 0.028)
[2020-07-10 22:01] LABS: SARS-CoV-2 PCR by NAA DETECTED (NotDetected)
[2020-07-11] MEDS: Acetaminophen 325 MG TAB PO PRN ×3 (04:17→23:58)
[2020-07-11] MEDS: Labetalol HCl 100 MG/20 ML VIAL SLOW IVP PRN ×3 (04:17→17:19)
[2020-07-11 05:31] LABS: Anion Gap 13 mmol/L (10-20); BUN (Urea Nitrogen) 20 mg/dL (8.4-25.7); Calc. Creatinine Clearance 51 mL/min (70-130); Calcium 8.5 mg/dL (7.8-10.44); Carbon Dioxide 19 mmol/L (23-31); Cardiac Risk 3.1 (Less than 4.5); Chloride 106 mmol/L (98-107); Cholesterol 174 mg/dl (< 200 Desired); Glucose 125 mg/dL (80-115); HDL Cholesterol 57 mg/dL (>60 Neg Risk); LDL Cholesterol, Calculated 101 mg/dL; Potassium 3.9 mmol/L (3.5-5.1); Sodium 134 mmol/L (136-145); Triglycerides 79 mg/dL (Less than 150)
[2020-07-11 05:32] LABS: Hemoglobin A1c 6.5 % (4.0-6.0)
[2020-07-11 06:01] LABS: Band 2 % (5-11); Hemoglobin 13.2 g/dL (14.0-18.0); Hypochromia SLIGHT = 6-15 cells (100X) (0-5/hpf); Lymphocytes 30 % (21-51); MDiff Complete? YES; Mean Corpuscular HGB CONC 32.8 g/dL (32.0-36.0); Mean Corpuscular Hemoglobin 28.1 pg (27.0-31.0); Mean Corpuscular Volume 85.7 fL (78.0-98.0); Mean Platelet Volume 9.7 fL (7.4-10.4); Monocytes 10 % (0-10); Neutrophil 55 % (42-75); Platelet Count 165 thou/uL (130-400); Platelet Morphology Comment Appears Adequate; RBC Distribution Width 12.8 % (11.5-14.5); Reactive Lymphocytes 3 % (0-10); Red Blood Cell (RBC) Count 4.69 mill/uL (4.70-6.10); White Blood Cell (WBC) Count 4.6 thou/uL (4.8-10.8)
[2020-07-11] MEDS ORDERED: Aspirin 325 mg Enteric Coated Tablet PO SCH (09:00)
[2020-07-11] MEDS: hydrALAZINE 20 MG/ML VIAL SLOW IVP PRN ×2 (11:28→23:58)
[2020-07-11] MEDS: Sodium Chloride 0.9% 1,000 ML IV SCH (12:28)
[2020-07-11] MEDS ORDERED: Hydrochlorothiazide 25 MG TAB PO SCH (12:45)
[2020-07-11] MEDS ORDERED: Amlodipine 10 MG TAB PO SCH (12:45)
[2020-07-11] MEDS ORDERED: Lisinopril 20 MG TAB PO SCH (12:45)
[2020-07-11] MEDS: HumuLIN 70/30 (300 UNITS/3 ML VIAL) SC SCH ×2 (17:28→19:47)
[2020-07-11] MEDS: Enoxaparin Sodium 40 MG/0.4 ML SYRINGE SC SCH (19:43)
[2020-07-11] MEDS: Atorvastatin Calcium 10 MG TAB PO SCH (19:44)
[2020-07-12] MEDS: Acetaminophen 325 MG TAB PO PRN ×3 (04:28→21:00)
[2020-07-12] MEDS: hydrALAZINE 20 MG/ML VIAL SLOW IVP PRN (04:29)
[2020-07-12] MEDS: Aspirin 81 mg Enteric Coated Tablet PO SCH (07:54)
[2020-07-12] MEDS: Amlodipine 10 MG TAB PO SCH (07:55)
[2020-07-12] MEDS: HumuLIN 70/30 (300 UNITS/3 ML VIAL) SC SCH ×3 (08:03→21:13)
[2020-07-12] MEDS ORDERED: Lisinopril 20 MG TAB PO SCH (09:00)
[2020-07-12] MEDS ORDERED: Hydrochlorothiazide 25 MG TAB PO SCH (09:00)
[2020-07-12] MEDS ORDERED: Amlodipine 10 MG TAB PO SCH (12:31)
[2020-07-12] MEDS: Labetalol HCl 100 MG/20 ML VIAL SLOW IVP PRN (12:41)
[2020-07-12] MEDS: Enoxaparin Sodium 40 MG/0.4 ML SYRINGE SC SCH (21:00)
[2020-07-12] MEDS: Atorvastatin Calcium 10 MG TAB PO SCH (21:00)
[2020-07-13] MEDS: Labetalol HCl 100 MG/20 ML VIAL SLOW IVP PRN (04:00)
[2020-07-13] MEDS: Acetaminophen 325 MG TAB PO PRN ×3 (04:00→21:12)
[2020-07-13] MEDS ORDERED: Morphine 4 MG/ML VIAL SLOW IVP SCH (04:30)
[2020-07-13 06:40] LABS: Bacteria/HPF None Seen HPF (None Seen); Bilirubin Negative (Negative); Blood, Urine 2+ (Negative); Clarity Turbid (Clear); Glucose, Urine (Dipstick) 50 mg/dL (Negative); Ketone, Urine Negative (Negative); Leukocyte Negative Leu/uL (Negative); Nitrite Negative (Negative); Protein, Urine (Dipstick) 300 mg/dL (Neg-Trace); RBC/HPF 0-3 HPF (0-3); Specific Gravity, Urine 1.023 (1.002-1.036); Squamous Epithelial 0-3 HPF (0-3); Urobilinogen Normal mg/dL (Less than 2)
[2020-07-13 06:52] LABS: Urine Culture Reflex Yes Yes
[2020-07-13] MEDS ORDERED: Regadenoson 0.4 MG/5 ML SYRINGE ONE (10:58)
[2020-07-13] MEDS: HumuLIN 70/30 (300 UNITS/3 ML VIAL) SC SCH ×3 (11:08→21:28)
[2020-07-13] MEDS: Lisinopril 20 MG TAB PO SCH (11:09)
[2020-07-13] MEDS: Aspirin 81 mg Enteric Coated Tablet PO SCH (11:09)
[2020-07-13] MEDS: Hydrochlorothiazide 25 MG TAB PO SCH (11:09)
[2020-07-13] MEDS: Amlodipine 10 MG TAB PO SCH (11:09)
[2020-07-13] MEDS: Carvedilol 3.125 MG TAB PO SCH (16:54)
[2020-07-13] MEDS: Atorvastatin Calcium 20 MG TAB PO SCH (21:11)
[2020-07-13] MEDS: Enoxaparin Sodium 40 MG/0.4 ML SYRINGE SC SCH (21:12)
[2020-07-14] MEDS ORDERED: Zolpidem Tartrate 5 MG TAB PO SCH (03:00)
[2020-07-14] MEDS: Labetalol HCl 100 MG/20 ML VIAL SLOW IVP PRN (04:27)
[2020-07-14] MEDS: Acetaminophen 325 MG TAB PO PRN ×4 (04:27→21:15)
[2020-07-14 06:05] LABS: Anion Gap 14 mmol/L (10-20); BUN (Urea Nitrogen) 22 mg/dL (8.4-25.7); Calc. Creatinine Clearance 43 mL/min (70-130); Calcium 9.4 mg/dL (7.8-10.44); Carbon Dioxide 24 mmol/L (23-31); Chloride 95 mmol/L (98-107); Glucose 161 mg/dL (80-115); Potassium 4.1 mmol/L (3.5-5.1); Sodium 129 mmol/L (136-145)
[2020-07-14 06:11] LABS: #Lymphocytes 1.5 thou/uL (1.20-3.40); #Monocytes 0.6 thou/uL (0.11-0.59); #Neutrophils 5.1 thou/uL (1.40-6.50); %Basophils 0.6 % (0.0-1.0); %Eosinophils 0.1 % (0.0-10.0); %Lymphocytes 20.4 % (21.0-51.0); %Neutrophils 70.9 % (42.0-75.0); Hemoglobin 15.2 g/dL (14.0-18.0); Mean Corpuscular HGB CONC 32.4 g/dL (32.0-36.0); Mean Corpuscular Hemoglobin 27.3 pg (27.0-31.0); Mean Corpuscular Volume 84.1 fL (78.0-98.0); Mean Platelet Volume 9.9 fL (7.4-10.4); Platelet Count 188 thou/uL (130-400); RBC Distribution Width 12.7 % (11.5-14.5); Red Blood Cell (RBC) Count 5.57 mill/uL (4.70-6.10); White Blood Cell (WBC) Count 7.2 thou/uL (4.8-10.8)
[2020-07-14] MEDS: Carvedilol 3.125 MG TAB PO SCH (08:10)
[2020-07-14] MEDS: HumuLIN 70/30 (300 UNITS/3 ML VIAL) SC SCH ×3 (08:11→21:16)
[2020-07-14] MEDS: Aspirin 81 mg Enteric Coated Tablet PO SCH (08:11)
[2020-07-14] MEDS: Amlodipine 10 MG TAB PO SCH (08:11)
[2020-07-14] MEDS: Lisinopril 20 MG TAB PO SCH (08:11)
[2020-07-14] MEDS: Hydrochlorothiazide 25 MG TAB PO SCH (08:11)
[2020-07-14] MEDS ORDERED: Vancomycin HCl 1 GM in Sodium Chloride 0.9% 250 ML 250 ML IVPB SCH (09:00)
[2020-07-14] MEDS: Vancomycin 1 GM in Premix Bag 1 BAG IVPB SCH (11:27)
[2020-07-14] MEDS ORDERED: Carvedilol 3.125 MG TAB PO SCH (12:30)
[2020-07-14] MEDS ORDERED: Furosemide 20 MG/2 ML VIAL SLOW IVP SCH (12:30)
[2020-07-14] MEDS ORDERED: Ipratropium/Albuterol Sulfate 4 GM AER IH PRN (13:01)
[2020-07-14] MEDS ORDERED: Ipratropium/Albuterol Sulfate 4 GM AER IH SCH (13:15)
[2020-07-14] MEDS: Carvedilol 6.25 MG TAB PO SCH (16:48)
[2020-07-14] MEDS ORDERED: Sodium Chloride 0.9% 1,000 ML IV SCH (19:15)
[2020-07-14] MEDS: Atorvastatin Calcium 20 MG TAB PO SCH (21:15)
[2020-07-14] MEDS: Enoxaparin Sodium 40 MG/0.4 ML SYRINGE SC SCH (21:15)
[2020-07-14] MEDS: Zolpidem Tartrate 5 MG TAB PO PRN (21:15)
[2020-07-14] MEDS: Morphine 4 MG/ML VIAL SLOW IVP PRN (23:07)
[2020-07-15 06:09] LABS: Anion Gap 16 mmol/L (10-20); BUN (Urea Nitrogen) 32 mg/dL (8.4-25.7); Calc. Creatinine Clearance 37 mL/min (70-130); Calcium 9.6 mg/dL (7.8-10.44); Carbon Dioxide 24 mmol/L (23-31); Chloride 95 mmol/L (98-107); Glucose 161 mg/dL (80-115); Potassium 4.3 mmol/L (3.5-5.1); Sodium 131 mmol/L (136-145)
[2020-07-15] MEDS: Aspirin 81 mg Enteric Coated Tablet PO SCH (08:42)
[2020-07-15] MEDS: Lisinopril 20 MG TAB PO SCH (08:42)
[2020-07-15] MEDS: Amlodipine 10 MG TAB PO SCH (08:42)
[2020-07-15] MEDS: Carvedilol 6.25 MG TAB PO SCH ×2 (08:42→16:59)
[2020-07-15] MEDS: Hydrochlorothiazide 25 MG TAB PO SCH (08:42)
[2020-07-15] MEDS: Vancomycin 1 GM in Premix Bag 1 BAG IVPB SCH (08:46)
[2020-07-15] MEDS: HumuLIN 70/30 (300 UNITS/3 ML VIAL) SC SCH ×3 (08:47→21:14)
[2020-07-15] MEDS: Acetaminophen 325 MG TAB PO PRN (09:47)
[2020-07-15] MEDS ORDERED: Tamsulosin HCl 0.4 MG CAP PO SCH (10:00)
[2020-07-15] MEDS: HumaLOG 300 UNITS/3 ML VIAL SC PRN (11:46)
[2020-07-15] MEDS: Isosorbide Dinitrate 20 MG TAB PO SCH (20:45)
[2020-07-15] MEDS: hydrALAZINE 25 MG TAB PO SCH (20:45)
[2020-07-15] MEDS: Atorvastatin Calcium 20 MG TAB PO SCH (20:45)
[2020-07-15] MEDS: Enoxaparin Sodium 40 MG/0.4 ML SYRINGE SC SCH (20:45)
[2020-07-15] MEDS: Morphine 4 MG/ML VIAL SLOW IVP PRN (20:46)
[2020-07-16 06:25] LABS: Anion Gap 20 mmol/L (10-20); BUN (Urea Nitrogen) 60 mg/dL (8.4-25.7); Calc. Creatinine Clearance 26 mL/min (70-130); Calcium 9.9 mg/dL (7.8-10.44); Carbon Dioxide 23 mmol/L (23-31); Chloride 93 mmol/L (98-107); Glucose 194 mg/dL (80-115); Potassium 5.1 mmol/L (3.5-5.1); Sodium 131 mmol/L (136-145)
[2020-07-16] MEDS: Vancomycin 1 GM in Premix Bag 1 BAG IVPB SCH (07:38)
[2020-07-16] MEDS: Aspirin 81 mg Enteric Coated Tablet PO SCH (07:39)
[2020-07-16] MEDS: hydrALAZINE 25 MG TAB PO SCH ×2 (07:39→19:58)
[2020-07-16] MEDS: Amlodipine 10 MG TAB PO SCH (07:40)
[2020-07-16] MEDS: Isosorbide Dinitrate 20 MG TAB PO SCH ×2 (07:40→19:59)
[2020-07-16] MEDS: Lisinopril 20 MG TAB PO SCH (07:41)
[2020-07-16] MEDS: Carvedilol 6.25 MG TAB PO SCH ×2 (07:41→16:44)
[2020-07-16] MEDS: HumuLIN 70/30 (300 UNITS/3 ML VIAL) SC SCH ×3 (07:42→21:02)
[2020-07-16 08:45] LABS: Vancomycin, Trough 23.8 ug/mL
[2020-07-16] MEDS ORDERED: Furosemide 20 MG TAB PO SCH (09:00)
[2020-07-16] MEDS ORDERED: Tamsulosin HCl 0.4 MG CAP PO SCH (09:00)
[2020-07-16] MEDS: HumaLOG 300 UNITS/3 ML VIAL SC PRN (10:14)
[2020-07-16] MEDS: Dicyclomine 20 MG TAB PO SCH ×3 (12:17→19:57)
[2020-07-16] MEDS: Morphine 4 MG/ML VIAL SLOW IVP PRN (12:17)
[2020-07-16] MEDS ORDERED: GUAIFENESIN SF SOLN 200 MG/10 ML UDCUP PO PRN (15:23)
[2020-07-16] MEDS: CEFAZOLIN 2 GM in Premix Bag 1 BAG IVPB SCH ×2 (16:41→23:16)
[2020-07-16] MEDS ORDERED: Albumin 25% 25 GM/100 ML BOT IVPB SCH (16:45)
[2020-07-16] MEDS: Albumin 25% 25 GM/100 ML BOT IVPB SCH ×2 (17:34→21:59)
[2020-07-16] MEDS: Enoxaparin Sodium 40 MG/0.4 ML SYRINGE SC SCH (19:57)
[2020-07-16] MEDS: Atorvastatin Calcium 20 MG TAB PO SCH (19:57)
[2020-07-17] MEDS: Albumin 25% 25 GM/100 ML BOT IVPB SCH ×2 (04:57→10:34)
[2020-07-17] MEDS ORDERED: Ondansetron PF 4 MG/2 ML Vial IVP PRN (05:21)
[2020-07-17] MEDS: CEFAZOLIN 2 GM in Premix Bag 1 BAG IVPB SCH ×3 (06:16→23:49)
[2020-07-17 06:22] LABS: #Eosinphils 0.1 thou/uL (0.0-0.7); #Lymphocytes 1.4 thou/uL (1.20-3.40); #Monocytes 0.8 thou/uL (0.11-0.59); #Neutrophils 4.8 thou/uL (1.40-6.50); %Basophils 0.4 % (0.0-1.0); %Eosinophils 1.5 % (0.0-10.0); %Lymphocytes 19.1 % (21.0-51.0); %Monocytes 11.6 % (0.0-10.0); %Neutrophils 67.4 % (42.0-75.0); Mean Corpuscular HGB CONC 32.5 g/dL (32.0-36.0); Mean Corpuscular Hemoglobin 28.1 pg (27.0-31.0); Mean Corpuscular Volume 86.6 fL (78.0-98.0); Mean Platelet Volume 9.7 fL (7.4-10.4); Platelet Count 244 thou/uL (130-400); RBC Distribution Width 12.6 % (11.5-14.5); Red Blood Cell (RBC) Count 4.61 mill/uL (4.70-6.10)
[2020-07-17 06:43] LABS: Anion Gap 20 mmol/L (10-20); BUN (Urea Nitrogen) 84 mg/dL (8.4-25.7); Calc. Creatinine Clearance 19 mL/min (70-130); Calcium 9.5 mg/dL (7.8-10.44); Carbon Dioxide 22 mmol/L (23-31); Chloride 92 mmol/L (98-107); Glucose 174 mg/dL (80-115); Potassium 4.2 mmol/L (3.5-5.1); Sodium 130 mmol/L (136-145)
[2020-07-17] MEDS: HumuLIN 70/30 (300 UNITS/3 ML VIAL) SC SCH ×3 (07:35→20:45)
[2020-07-17] MEDS: hydrALAZINE 25 MG TAB PO SCH ×3 (07:40→20:43)
[2020-07-17] MEDS: Carvedilol 6.25 MG TAB PO SCH ×2 (07:41→17:34)
[2020-07-17] MEDS: Aspirin 81 mg Enteric Coated Tablet PO SCH (07:41)
[2020-07-17] MEDS: Dicyclomine 20 MG TAB PO SCH ×4 (07:41→20:42)
[2020-07-17] MEDS: Isosorbide Dinitrate 20 MG TAB PO SCH ×2 (07:41→20:44)
[2020-07-17] MEDS: Sodium Chloride 0.9% 1,000 ML IV SCH ×2 (08:25→23:49)
[2020-07-17] MEDS ORDERED: Isosorbide Dinitrate 20 MG TAB PO SCH (09:00)
[2020-07-17] MEDS ORDERED: Vancomycin HCl 750 MG in Sodium Chloride 0.9% 250 ML 250 ML IVPB SCH (09:00)
[2020-07-17] MEDS ORDERED: Heparin 1,000 UNITS/ML VIAL ONE (09:52)
[2020-07-17] MEDS: HumaLOG 300 UNITS/3 ML VIAL SC PRN (11:58)
[2020-07-17 16:01] LABS: Bacteria/HPF 4+ HPF (None Seen); Bilirubin Negative (Negative); Blood, Urine Negative (Negative); Clarity Clear (Clear); Glucose, Urine (Dipstick) Normal (Negative); Ketone, Urine Trace mg/dL (Negative); Leukocyte Negative Leu/uL (Negative); Nitrite Negative (Negative); Protein, Urine (Dipstick) 70 mg/dL (Neg-Trace); RBC/HPF 0-3 HPF (0-3); Specific Gravity, Urine 1.023 (1.002-1.036); Squamous Epithelial 0-3 HPF (0-3); Urobilinogen Normal mg/dL (Less than 2); WBC/HPF 0-3 HPF (0-3)
[2020-07-17] MEDS: Atorvastatin Calcium 20 MG TAB PO SCH (20:42)
[2020-07-17] MEDS: Enoxaparin Sodium 30 MG/0.3 ML SYRINGE SC SCH (20:42)
[2020-07-18] MEDS: Acetaminophen 325 MG TAB PO PRN (00:03)
[2020-07-18 05:39] LABS: Anion Gap 14 mmol/L (10-20); BUN (Urea Nitrogen) 84 mg/dL (8.4-25.7); Calc. Creatinine Clearance 20 mL/min (70-130); Calcium 9.3 mg/dL (7.8-10.44); Carbon Dioxide 27 mmol/L (23-31); Chloride 94 mmol/L (98-107); Glucose 200 mg/dL (80-115); Sodium 131 mmol/L (136-145)
[2020-07-18 05:48] LABS: Hemoglobin 12.7 g/dL (14.0-18.0); Mean Corpuscular HGB CONC 34.4 g/dL (32.0-36.0); Mean Corpuscular Volume 84.5 fL (78.0-98.0); Mean Platelet Volume 8.9 fL (7.4-10.4); Platelet Count 362 thou/uL (130-400); RBC Distribution Width 12.6 % (11.5-14.5); Red Blood Cell (RBC) Count 4.36 mill/uL (4.70-6.10)
[2020-07-18 06:21] LABS: Band 1 % (5-11); Eosinophils 7 % (0-10); Lymphocytes 20 % (21-51); MDiff Complete? YES; Monocytes 8 % (0-10); Neutrophil 63 % (42-75); Reactive Lymphocytes 1 % (0-10)
[2020-07-18] MEDS: CEFAZOLIN 2 GM in Premix Bag 1 BAG IVPB SCH ×2 (06:49→16:11)
[2020-07-18] MEDS: HumuLIN 70/30 (300 UNITS/3 ML VIAL) SC SCH ×3 (09:23→20:51)
[2020-07-18] MEDS: Dicyclomine 20 MG TAB PO SCH ×4 (09:25→19:51)
[2020-07-18] MEDS: Aspirin 81 mg Enteric Coated Tablet PO SCH (09:25)
[2020-07-18] MEDS: hydrALAZINE 25 MG TAB PO SCH ×2 (09:25→19:49)
[2020-07-18] MEDS: Dexamethasone 4 mg/ml Vial SLOW IVP SCH (09:25)
[2020-07-18] MEDS: Carvedilol 6.25 MG TAB PO SCH ×2 (09:26→16:10)
[2020-07-18] MEDS: Isosorbide Dinitrate 20 MG TAB PO SCH ×2 (09:27→19:50)
[2020-07-18] MEDS: Sodium Chloride 0.9% 1,000 ML IV SCH (12:21)
[2020-07-18] MEDS: HumaLOG 300 UNITS/3 ML VIAL SC PRN ×2 (16:11→20:52)
[2020-07-18] MEDS: Atorvastatin Calcium 20 MG TAB PO SCH (19:49)
[2020-07-18] MEDS: Enoxaparin Sodium 30 MG/0.3 ML SYRINGE SC SCH (19:51)
[2020-07-19] MEDS: CEFAZOLIN 2 GM in Premix Bag 1 BAG IVPB SCH ×4 (00:59→22:03)
[2020-07-19] MEDS: Sodium Chloride 0.9% 1,000 ML IV SCH ×2 (00:59→12:52)
[2020-07-19] MEDS: hydrALAZINE 20 MG/ML VIAL SLOW IVP PRN (04:30)
[2020-07-19 05:24] LABS: #Lymphocytes 1.2 thou/uL (1.20-3.40); #Monocytes 1.3 thou/uL (0.11-0.59); #Neutrophils 10.3 thou/uL (1.40-6.50); %Basophils 0.3 % (0.0-1.0); %Eosinophils 0.1 % (0.0-10.0); %Lymphocytes 9.1 % (21.0-51.0); %Monocytes 10.3 % (0.0-10.0); %Neutrophils 80.2 % (42.0-75.0); Hemoglobin 12.3 g/dL (14.0-18.0); Mean Corpuscular HGB CONC 32.9 g/dL (32.0-36.0); Mean Corpuscular Hemoglobin 27.8 pg (27.0-31.0); Mean Corpuscular Volume 84.4 fL (78.0-98.0); Mean Platelet Volume 8.1 fL (7.4-10.4); Platelet Count 458 thou/uL (130-400); RBC Distribution Width 12.4 % (11.5-14.5); Red Blood Cell (RBC) Count 4.44 mill/uL (4.70-6.10); White Blood Cell (WBC) Count 12.9 thou/uL (4.8-10.8)
[2020-07-19 05:44] LABS: Anion Gap 12 mmol/L (10-20); BUN (Urea Nitrogen) 75 mg/dL (8.4-25.7); Calc. Creatinine Clearance 29 mL/min (70-130); Calcium 9.6 mg/dL (7.8-10.44); Carbon Dioxide 23 mmol/L (23-31); Chloride 104 mmol/L (98-107); Glucose 226 mg/dL (80-115); Potassium 4.4 mmol/L (3.5-5.1); Sodium 135 mmol/L (136-145)
[2020-07-19] MEDS: HumaLOG 300 UNITS/3 ML VIAL SC PRN ×3 (05:51→21:08)
[2020-07-19] MEDS: Aspirin 81 mg Enteric Coated Tablet PO SCH (08:20)
[2020-07-19] MEDS: Dicyclomine 20 MG TAB PO SCH ×4 (08:20→21:05)
[2020-07-19] MEDS: Carvedilol 6.25 MG TAB PO SCH ×2 (08:20→16:29)
[2020-07-19] MEDS: hydrALAZINE 25 MG TAB PO SCH ×2 (08:21→21:06)
[2020-07-19] MEDS: Isosorbide Dinitrate 20 MG TAB PO SCH ×2 (08:21→21:06)
[2020-07-19] MEDS: HumuLIN 70/30 (300 UNITS/3 ML VIAL) SC SCH ×3 (08:22→21:07)
[2020-07-19] MEDS: Dexamethasone 4 mg/ml Vial SLOW IVP SCH (08:27)
[2020-07-19] MEDS: Enoxaparin Sodium 30 MG/0.3 ML SYRINGE SC SCH (21:05)
[2020-07-19] MEDS: Atorvastatin Calcium 20 MG TAB PO SCH (21:05)
[2020-07-20] MEDS: Sodium Chloride 0.9% 1,000 ML IV SCH ×3 (03:26→21:18)
[2020-07-20] MEDS: HumaLOG 300 UNITS/3 ML VIAL SC PRN ×3 (06:02→21:08)
[2020-07-20] MEDS: CEFAZOLIN 2 GM in Premix Bag 1 BAG IVPB SCH ×3 (06:04→22:06)
[2020-07-20] MEDS: HumuLIN 70/30 (300 UNITS/3 ML VIAL) SC SCH ×3 (08:32→21:07)
[2020-07-20] MEDS: hydrALAZINE 25 MG TAB PO SCH ×3 (08:34→21:10)
[2020-07-20] MEDS: Carvedilol 6.25 MG TAB PO SCH ×2 (08:34→17:17)
[2020-07-20] MEDS: Aspirin 81 mg Enteric Coated Tablet PO SCH (08:34)
[2020-07-20] MEDS: Dicyclomine 20 MG TAB PO SCH ×4 (08:34→21:07)
[2020-07-20] MEDS: Isosorbide Dinitrate 20 MG TAB PO SCH ×2 (08:35→21:10)
[2020-07-20] MEDS: Dexamethasone 4 MG TAB PO SCH (08:35)
[2020-07-20 10:04] LABS: Anion Gap 15 mmol/L (10-20); BUN (Urea Nitrogen) 61 mg/dL (8.4-25.7); Calc. Creatinine Clearance 38 mL/min (70-130); Calcium 9.9 mg/dL (7.8-10.44); Carbon Dioxide 23 mmol/L (23-31); Chloride 107 mmol/L (98-107); Glucose 168 mg/dL (80-115); Potassium 4.6 mmol/L (3.5-5.1); Sodium 140 mmol/L (136-145)
[2020-07-20] MEDS: Enoxaparin Sodium 30 MG/0.3 ML SYRINGE SC SCH (21:07)
[2020-07-20] MEDS: Atorvastatin Calcium 20 MG TAB PO SCH (21:07)
[2020-07-21] MEDS: hydrALAZINE 20 MG/ML VIAL SLOW IVP PRN (03:52)
[2020-07-21] MEDS: Labetalol HCl 100 MG/20 ML VIAL SLOW IVP PRN (05:06)
[2020-07-21 06:28] LABS: Anion Gap 11 mmol/L (10-20); BUN (Urea Nitrogen) 54 mg/dL (8.4-25.7); Calc. Creatinine Clearance 40 mL/min (70-130); Calcium 9.7 mg/dL (7.8-10.44); Carbon Dioxide 22 mmol/L (23-31); Chloride 109 mmol/L (98-107); Glucose 249 mg/dL (80-115); Potassium 4.5 mmol/L (3.5-5.1); Sodium 137 mmol/L (136-145)
[2020-07-21] MEDS: HumaLOG 300 UNITS/3 ML VIAL SC PRN ×4 (07:26→22:22)
[2020-07-21] MEDS: CEFAZOLIN 2 GM in Premix Bag 1 BAG IVPB SCH ×3 (07:26→23:17)
[2020-07-21] MEDS: Aspirin 81 mg Enteric Coated Tablet PO SCH (08:06)
[2020-07-21] MEDS: Dexamethasone 4 MG TAB PO SCH (08:06)
[2020-07-21] MEDS: Carvedilol 6.25 MG TAB PO SCH ×2 (08:06→17:11)
[2020-07-21] MEDS: Isosorbide Dinitrate 20 MG TAB PO SCH ×2 (08:07→20:02)
[2020-07-21] MEDS: hydrALAZINE 25 MG TAB PO SCH ×3 (08:07→20:03)
[2020-07-21] MEDS: Dicyclomine 20 MG TAB PO SCH ×4 (08:07→20:03)
[2020-07-21] MEDS: HumuLIN 70/30 (300 UNITS/3 ML VIAL) SC SCH ×3 (08:20→20:03)
[2020-07-21] MEDS: Sodium Chloride 0.9% 1,000 ML IV SCH ×2 (11:24→12:39)
[2020-07-21] MEDS: NIFEdipine XL 60 MG TAB PO SCH (12:39)
[2020-07-21] MEDS: Enoxaparin Sodium 30 MG/0.3 ML SYRINGE SC SCH (20:02)
[2020-07-21] MEDS: Atorvastatin Calcium 20 MG TAB PO SCH (20:03)
[2020-07-22 05:26] LABS: Anion Gap 11 mmol/L (10-20); BUN (Urea Nitrogen) 41 mg/dL (8.4-25.7); Calc. Creatinine Clearance 48 mL/min (70-130); Calcium 9.6 mg/dL (7.8-10.44); Carbon Dioxide 23 mmol/L (23-31); Chloride 110 mmol/L (98-107); Glucose 95 mg/dL (80-115); Potassium 4.3 mmol/L (3.5-5.1); Sodium 140 mmol/L (136-145)
[2020-07-22] MEDS: CEFAZOLIN 2 GM in Premix Bag 1 BAG IVPB SCH ×3 (06:42→22:05)
[2020-07-22] MEDS: Sodium Chloride 0.9% 1,000 ML IV SCH ×2 (07:27→12:34)
[2020-07-22] MEDS: Aspirin 81 mg Enteric Coated Tablet PO SCH (09:55)
[2020-07-22] MEDS: Carvedilol 6.25 MG TAB PO SCH ×3 (09:55→20:58)
[2020-07-22] MEDS: hydrALAZINE 25 MG TAB PO SCH ×3 (09:55→21:02)
[2020-07-22] MEDS: Dexamethasone 4 MG TAB PO SCH (09:56)
[2020-07-22] MEDS: Isosorbide Dinitrate 20 MG TAB PO SCH ×2 (09:56→21:02)
[2020-07-22] MEDS: Dicyclomine 20 MG TAB PO SCH ×4 (09:56→21:02)
[2020-07-22] MEDS: HumuLIN 70/30 (300 UNITS/3 ML VIAL) SC SCH ×3 (09:59→20:53)
[2020-07-22] MEDS: HumaLOG 300 UNITS/3 ML VIAL SC PRN (12:32)
[2020-07-22] MEDS: NIFEdipine XL 60 MG TAB PO SCH (12:32)
[2020-07-22] MEDS: Atorvastatin Calcium 20 MG TAB PO SCH (20:58)
[2020-07-22] MEDS: Enoxaparin Sodium 30 MG/0.3 ML SYRINGE SC SCH (21:01)
[2020-07-23 05:35] LABS: Anion Gap 13 mmol/L (10-20); BUN (Urea Nitrogen) 47 mg/dL (8.4-25.7); Calc. Creatinine Clearance 44 mL/min (70-130); Calcium 9.1 mg/dL (7.8-10.44); Carbon Dioxide 20 mmol/L (23-31); Chloride 108 mmol/L (98-107); Glucose 247 mg/dL (80-115); Potassium 4.8 mmol/L (3.5-5.1); Sodium 136 mmol/L (136-145)
[2020-07-23] MEDS: HumaLOG 300 UNITS/3 ML VIAL SC PRN ×3 (06:00→21:46)
[2020-07-23] MEDS: CEFAZOLIN 2 GM in Premix Bag 1 BAG IVPB SCH ×2 (06:02→17:17)
[2020-07-23] MEDS: HumuLIN 70/30 (300 UNITS/3 ML VIAL) SC SCH ×3 (08:20→21:39)
[2020-07-23] MEDS: Carvedilol 6.25 MG TAB PO SCH ×2 (08:21→17:17)
[2020-07-23] MEDS: Dicyclomine 20 MG TAB PO SCH ×4 (08:22→21:39)
[2020-07-23] MEDS: hydrALAZINE 25 MG TAB PO SCH ×3 (08:22→21:39)
[2020-07-23] MEDS: Isosorbide Dinitrate 20 MG TAB PO SCH ×2 (08:22→21:39)
[2020-07-23] MEDS: Aspirin 81 mg Enteric Coated Tablet PO SCH (08:22)
[2020-07-23] MEDS: Dexamethasone 4 MG TAB PO SCH (08:23)
[2020-07-23] MEDS: Sodium Chloride 0.9% 1,000 ML IV SCH (08:29)
[2020-07-23] MEDS: NIFEdipine XL 60 MG TAB PO SCH (13:06)
[2020-07-23] MEDS: Nicotine 14 MG PATCH TD PRN (14:47)
[2020-07-23] MEDS: Atorvastatin Calcium 20 MG TAB PO SCH (21:39)
[2020-07-23] MEDS: Enoxaparin Sodium 30 MG/0.3 ML SYRINGE SC SCH (21:39)
[2020-07-24] MEDS: CEFAZOLIN 2 GM in Premix Bag 1 BAG IVPB SCH ×4 (00:22→22:53)
[2020-07-24] MEDS: Sodium Chloride 0.9% 1,000 ML IV SCH (05:42)
[2020-07-24] MEDS: Aspirin 81 mg Enteric Coated Tablet PO SCH (07:43)
[2020-07-24] MEDS: hydrALAZINE 25 MG TAB PO SCH ×3 (07:43→21:24)
[2020-07-24] MEDS: Isosorbide Dinitrate 20 MG TAB PO SCH ×2 (07:43→21:24)
[2020-07-24] MEDS: Dexamethasone 4 MG TAB PO SCH (07:44)
[2020-07-24] MEDS: Dicyclomine 20 MG TAB PO SCH ×4 (07:45→21:24)
[2020-07-24] MEDS: Carvedilol 25 MG TAB PO SCH ×2 (07:46→16:40)
[2020-07-24] MEDS: HumuLIN 70/30 (300 UNITS/3 ML VIAL) SC SCH ×3 (07:47→21:24)
[2020-07-24] MEDS: HumaLOG 300 UNITS/3 ML VIAL SC PRN ×2 (11:27→16:41)
[2020-07-24] MEDS: NIFEdipine XL 60 MG TAB PO SCH (11:52)
[2020-07-24] MEDS: Enoxaparin Sodium 40 MG/0.4 ML SYRINGE SC SCH (21:24)
[2020-07-24] MEDS: Atorvastatin Calcium 20 MG TAB PO SCH (21:24)
[2020-07-24] MEDS: Nicotine 14 MG PATCH TD PRN (21:27)
[2020-07-24] MEDS: Zolpidem Tartrate 5 MG TAB PO PRN (21:34)
[2020-07-25 04:51] LABS: Hemoglobin 12.7 g/dL (14.0-18.0); Mean Corpuscular HGB CONC 32.8 g/dL (32.0-36.0); Mean Corpuscular Hemoglobin 28.5 pg (27.0-31.0); Mean Corpuscular Volume 86.9 fL (78.0-98.0); Mean Platelet Volume 7.6 fL (7.4-10.4); Platelet Count 603 thou/uL (130-400); Red Blood Cell (RBC) Count 4.45 mill/uL (4.70-6.10)
[2020-07-25 05:12] LABS: Anion Gap 11 mmol/L (10-20); BUN (Urea Nitrogen) 41 mg/dL (8.4-25.7); Calc. Creatinine Clearance 49 mL/min (70-130); Carbon Dioxide 23 mmol/L (23-31); Chloride 107 mmol/L (98-107); Glucose 142 mg/dL (80-115); Potassium 4.3 mmol/L (3.5-5.1); Sodium 137 mmol/L (136-145)
[2020-07-25 05:32] LABS: Lymphocytes 7 % (21-51); MDiff Complete? YES; Monocytes 4 % (0-10); Neutrophil 89 % (42-75); Platelet Morphology Comment Appears Increased; White Blood Cell (WBC) Count 22.6 thou/uL (4.8-10.8)
[2020-07-25] MEDS: CEFAZOLIN 2 GM in Premix Bag 1 BAG IVPB SCH ×3 (05:58→22:32)
[2020-07-25] MEDS: Sodium Chloride 0.9% 1,000 ML IV SCH (07:30)
[2020-07-25] MEDS: HumuLIN 70/30 (300 UNITS/3 ML VIAL) SC SCH ×3 (07:32→22:28)
[2020-07-25] MEDS: hydrALAZINE 25 MG TAB PO SCH ×3 (07:43→22:31)
[2020-07-25] MEDS: Aspirin 81 mg Enteric Coated Tablet PO SCH (07:44)
[2020-07-25] MEDS: Dexamethasone 4 MG TAB PO SCH (07:44)
[2020-07-25] MEDS: Dicyclomine 20 MG TAB PO SCH ×4 (07:45→22:31)
[2020-07-25] MEDS: Carvedilol 25 MG TAB PO SCH ×2 (07:45→17:15)
[2020-07-25] MEDS: Isosorbide Dinitrate 20 MG TAB PO SCH ×2 (07:45→22:31)
[2020-07-25] MEDS: NIFEdipine XL 60 MG TAB PO SCH (11:13)
[2020-07-25] MEDS: HumaLOG 300 UNITS/3 ML VIAL SC PRN ×2 (11:14→15:03)
[2020-07-25] MEDS: Enoxaparin Sodium 40 MG/0.4 ML SYRINGE SC SCH (22:28)
[2020-07-25] MEDS: Nicotine 14 MG PATCH TD PRN (22:30)
[2020-07-25] MEDS: Atorvastatin Calcium 20 MG TAB PO SCH (22:31)
[2020-07-25] MEDS: Zolpidem Tartrate 5 MG TAB PO PRN (22:31)
[2020-07-25] MEDS: Gabapentin 100 MG CAP PO SCH (22:31)
[2020-07-26 05:05] LABS: Anion Gap 11 mmol/L (10-20); BUN (Urea Nitrogen) 47 mg/dL (8.4-25.7); Calc. Creatinine Clearance 46 mL/min (70-130); Calcium 8.9 mg/dL (7.8-10.44); Carbon Dioxide 23 mmol/L (23-31); Chloride 107 mmol/L (98-107); Glucose 259 mg/dL (80-115); Potassium 4.6 mmol/L (3.5-5.1); Sodium 136 mmol/L (136-145)
[2020-07-26] MEDS: HumaLOG 300 UNITS/3 ML VIAL SC PRN ×3 (05:19→20:51)
[2020-07-26 05:21] LABS: Band 1 % (5-11); Eosinophils 1 % (0-10); Hemoglobin 12.2 g/dL (14.0-18.0); Lymphocytes 10 % (21-51); MDiff Complete? YES; Mean Corpuscular HGB CONC 33.3 g/dL (32.0-36.0); Mean Corpuscular Hemoglobin 29.1 pg (27.0-31.0); Mean Corpuscular Volume 87.5 fL (78.0-98.0); Mean Platelet Volume 7.4 fL (7.4-10.4); Monocytes 9 % (0-10); Neutrophil 79 % (42-75); Platelet Count 556 thou/uL (130-400); Platelet Morphology Comment Appears Increased; Red Blood Cell (RBC) Count 4.21 mill/uL (4.70-6.10); White Blood Cell (WBC) Count 21.4 thou/uL (4.8-10.8)
[2020-07-26] MEDS: CEFAZOLIN 2 GM in Premix Bag 1 BAG IVPB SCH ×3 (06:18→23:19)
[2020-07-26] MEDS: Sodium Chloride 0.9% 1,000 ML IV SCH (06:23)
[2020-07-26] MEDS ORDERED: Cepastat Lozenges 1 LOZ PO PRN (07:58)
[2020-07-26] MEDS ORDERED: Loperamide HCl 2 MG CAP PO PRN (07:58)
[2020-07-26] MEDS ORDERED: Ondansetron ODT 4 MG TAB SL PRN (07:58)
[2020-07-26] MEDS ORDERED: Sodium Chloride 0.65% Nasal 44 ML BOT EA NARE PRN (07:58)
[2020-07-26] MEDS ORDERED: Calcium Carbonate 500 MG ChewTAB PO PRN (07:58)
[2020-07-26] MEDS ORDERED: Loratadine 10 MG TAB PO PRN (07:58)
[2020-07-26] MEDS ORDERED: Senokot S 8.6-50 MG TAB PO PRN (07:58)
[2020-07-26] MEDS: HumuLIN 70/30 (300 UNITS/3 ML VIAL) SC SCH ×3 (08:35→20:50)
[2020-07-26] MEDS: hydrALAZINE 25 MG TAB PO SCH ×3 (08:37→20:49)
[2020-07-26] MEDS: Aspirin 81 mg Enteric Coated Tablet PO SCH (08:37)
[2020-07-26] MEDS: Carvedilol 25 MG TAB PO SCH ×2 (08:38→16:38)
[2020-07-26] MEDS: Dicyclomine 20 MG TAB PO SCH ×4 (08:38→20:50)
[2020-07-26] MEDS: Isosorbide Dinitrate 20 MG TAB PO SCH ×2 (08:38→20:49)
[2020-07-26] MEDS: Dexamethasone 4 MG TAB PO SCH (08:38)
[2020-07-26] MEDS: NIFEdipine XL 60 MG TAB PO SCH (12:19)
[2020-07-26] MEDS: HYDROcodone/Acetaminophen 5/325 mg Tablet PO PRN ×2 (16:46→23:20)
[2020-07-26] MEDS: Atorvastatin Calcium 20 MG TAB PO SCH (20:48)
[2020-07-26] MEDS: Gabapentin 100 MG CAP PO SCH (20:48)
[2020-07-26] MEDS: Enoxaparin Sodium 40 MG/0.4 ML SYRINGE SC SCH (20:52)
[2020-07-26] MEDS: Nicotine 14 MG PATCH TD PRN (23:20)
[2020-07-27 05:39] LABS: Hemoglobin 12.4 g/dL (14.0-18.0); Mean Corpuscular HGB CONC 32.3 g/dL (32.0-36.0); Mean Corpuscular Hemoglobin 27.9 pg (27.0-31.0); Mean Corpuscular Volume 86.4 fL (78.0-98.0); Mean Platelet Volume 7.7 fL (7.4-10.4); Platelet Count 511 thou/uL (130-400); RBC Distribution Width 13.2 % (11.5-14.5); Red Blood Cell (RBC) Count 4.43 mill/uL (4.70-6.10); White Blood Cell (WBC) Count 18.8 thou/uL (4.8-10.8)
[2020-07-27 05:55] LABS: ALT (SGPT) Less than 7 U/L (8-55); AST (SGOT) 16 U/L (5-34); Albumin 2.7 g/dL (3.4-4.8); Alkaline Phosphatase 127 U/L (40-110); Anion Gap 11 mmol/L (10-20); BUN (Urea Nitrogen) 44 mg/dL (8.4-25.7); Bilirubin, Total 0.2 mg/dL (0.2-1.2); CRP (Inflammatory) 0.89 mg/dL (= or < 0.5); Calc. Creatinine Clearance 49 mL/min (70-130); Carbon Dioxide 24 mmol/L (23-31); Chloride 108 mmol/L (98-107); Globulin 2.9 g/dL (2.4-3.5); Glucose 178 mg/dL (80-115); Magnesium 1.8 mg/dL (1.6-2.6); Potassium 4.8 mmol/L (3.5-5.1); Protein, Total 5.6 g/dL (5.8-8.1); Sodium 138 mmol/L (136-145)
[2020-07-27 05:57] LABS: Lymphocytes 8 % (21-51); MDiff Complete? YES; Monocytes 3 % (0-10); Neutrophil 89 % (42-75); Platelet Morphology Comment Appears Increased
[2020-07-27] MEDS: HumaLOG 300 UNITS/3 ML VIAL SC PRN ×2 (06:24→11:52)
[2020-07-27] MEDS: CEFAZOLIN 2 GM in Premix Bag 1 BAG IVPB SCH ×2 (06:25→15:36)
[2020-07-27] MEDS ORDERED: cloNIDine 0.1 MG TAB PO PRN (07:41)
[2020-07-27] MEDS ORDERED: Morphine 4 MG/ML VIAL SLOW IVP PRN (07:44)
[2020-07-27] MEDS: HumuLIN 70/30 (300 UNITS/3 ML VIAL) SC SCH ×4 (08:07→22:30)
[2020-07-27] MEDS: hydrALAZINE 25 MG TAB PO SCH ×3 (08:08→21:14)
[2020-07-27] MEDS: Carvedilol 25 MG TAB PO SCH ×2 (08:09→16:45)
[2020-07-27] MEDS: Isosorbide Dinitrate 20 MG TAB PO SCH ×2 (08:09→21:14)
[2020-07-27] MEDS: Aspirin 81 mg Enteric Coated Tablet PO SCH (08:09)
[2020-07-27] MEDS: NIFEdipine XL 60 MG TAB PO SCH (11:53)
[2020-07-27] MEDS: Enoxaparin Sodium 40 MG/0.4 ML SYRINGE SC SCH (21:14)
[2020-07-27] MEDS: Atorvastatin Calcium 20 MG TAB PO SCH (21:14)
[2020-07-27] MEDS: Gabapentin 100 MG CAP PO SCH (21:14)
[2020-07-28] MEDS: CEFAZOLIN 2 GM in Premix Bag 1 BAG IVPB SCH ×4 (01:31→23:15)
[2020-07-28 05:20] LABS: Anion Gap 12 mmol/L (10-20); BUN (Urea Nitrogen) 41 mg/dL (8.4-25.7); Calc. Creatinine Clearance 46 mL/min (70-130); Calcium 8.9 mg/dL (7.8-10.44); Carbon Dioxide 27 mmol/L (23-31); Chloride 105 mmol/L (98-107); Glucose 148 mg/dL (80-115); Potassium 4.5 mmol/L (3.5-5.1); Sodium 139 mmol/L (136-145)
[2020-07-28 05:21] LABS: Band 2 % (5-11); Eosinophils 1 % (0-10); Hemoglobin 12.4 g/dL (14.0-18.0); Hypochromia SLIGHT = 6-15 cells (100X) (0-5/hpf); Lymphocytes 47 % (21-51); MDiff Complete? YES; Mean Corpuscular HGB CONC 31.7 g/dL (32.0-36.0); Mean Corpuscular Hemoglobin 27.5 pg (27.0-31.0); Mean Corpuscular Volume 86.8 fL (78.0-98.0); Mean Platelet Volume 7.9 fL (7.4-10.4); Monocytes 8 % (0-10); Neutrophil 40 % (42-75); Platelet Count 480 thou/uL (130-400); Platelet Morphology Comment Appears Increased; RBC Distribution Width 13.2 % (11.5-14.5); Reactive Lymphocytes 2 % (0-10); Red Blood Cell (RBC) Count 4.51 mill/uL (4.70-6.10); White Blood Cell (WBC) Count 13.8 thou/uL (4.8-10.8)
[2020-07-28] MEDS: HumuLIN 70/30 (300 UNITS/3 ML VIAL) SC SCH ×2 (08:58→16:56)
[2020-07-28] MEDS: Carvedilol 25 MG TAB PO SCH ×2 (09:21→18:06)
[2020-07-28] MEDS: Aspirin 81 mg Enteric Coated Tablet PO SCH (09:21)
[2020-07-28] MEDS: Isosorbide Dinitrate 20 MG TAB PO SCH ×2 (09:22→19:58)
[2020-07-28] MEDS: hydrALAZINE 25 MG TAB PO SCH ×3 (09:22→19:57)
[2020-07-28] MEDS: NIFEdipine XL 60 MG TAB PO SCH (11:39)
[2020-07-28 12:31] VITALS: BMI 23.9
[2020-07-28] MEDS: Enoxaparin Sodium 40 MG/0.4 ML SYRINGE SC SCH (19:58)
[2020-07-28] MEDS: Atorvastatin Calcium 20 MG TAB PO SCH (19:58)
[2020-07-28] MEDS: Gabapentin 100 MG CAP PO SCH (19:58)
[2020-07-28] MEDS: Nicotine 14 MG PATCH TD PRN (23:14)
[2020-07-29] MEDS: CEFAZOLIN 2 GM in Premix Bag 1 BAG IVPB SCH ×3 (06:28→23:39)
[2020-07-29] MEDS: hydrALAZINE 25 MG TAB PO SCH ×3 (08:46→19:49)
[2020-07-29] MEDS: Aspirin 81 mg Enteric Coated Tablet PO SCH (08:47)
[2020-07-29] MEDS: NIFEdipine XL 90 MG TAB PO SCH (08:47)
[2020-07-29] MEDS: Carvedilol 25 MG TAB PO SCH ×2 (08:47→16:34)
[2020-07-29] MEDS: Isosorbide Dinitrate 20 MG TAB PO SCH ×2 (08:47→19:49)
[2020-07-29 10:24] LABS: Hemoglobin 12.7 g/dL (14.0-18.0); Mean Corpuscular HGB CONC 32.7 g/dL (32.0-36.0); Mean Corpuscular Hemoglobin 28.5 pg (27.0-31.0); Mean Corpuscular Volume 87.1 fL (78.0-98.0); Mean Platelet Volume 7.7 fL (7.4-10.4); Platelet Count 401 thou/uL (130-400); RBC Distribution Width 13.7 % (11.5-14.5); Red Blood Cell (RBC) Count 4.45 mill/uL (4.70-6.10); White Blood Cell (WBC) Count 11.8 thou/uL (4.8-10.8)
[2020-07-29 11:23] LABS: Eosinophils 1 % (0-10); Hypochromia SLIGHT = 6-15 cells (100X) (0-5/hpf); Lymphocytes 27 % (21-51); MDiff Complete? YES; Monocytes 14 % (0-10); Myelocyte 1 % (0-0); Neutrophil 57 % (42-75); Platelet Morphology Comment Appears Adequate; Polychromasia SLIGHT = 2-3 cells (100X) (0-2/hpf); Target Cells SLIGHT = 2-5 cells (100X) (0-1/hpf)
[2020-07-29] MEDS: HumaLOG 300 UNITS/3 ML VIAL SC PRN (16:33)
[2020-07-29] MEDS: Enoxaparin Sodium 40 MG/0.4 ML SYRINGE SC SCH (19:49)
[2020-07-29] MEDS: Atorvastatin Calcium 20 MG TAB PO SCH (19:49)
[2020-07-29] MEDS: Gabapentin 100 MG CAP PO SCH (19:49)
[2020-07-30] MEDS: CEFAZOLIN 2 GM in Premix Bag 1 BAG IVPB SCH (07:34)
[2020-07-30] MEDS: NIFEdipine XL 90 MG TAB PO SCH (08:32)
[2020-07-30] MEDS: Lisinopril 10 MG TAB PO SCH (08:33)
[2020-07-30] MEDS: Aspirin 81 mg Enteric Coated Tablet PO SCH (08:33)
[2020-07-30] MEDS: hydrALAZINE 25 MG TAB PO SCH ×3 (08:33→21:58)
[2020-07-30] MEDS: Isosorbide Dinitrate 20 MG TAB PO SCH ×2 (08:34→21:59)
[2020-07-30] MEDS: Carvedilol 25 MG TAB PO SCH ×2 (08:34→17:33)
[2020-07-30 09:23] LABS: Eosinophils 2 % (0-10); Hemoglobin 12.5 g/dL (14.0-18.0); Lymphocytes 15 % (21-51); MDiff Complete? YES; Mean Corpuscular HGB CONC 33.4 g/dL (32.0-36.0); Mean Corpuscular Hemoglobin 28.7 pg (27.0-31.0); Monocytes 16 % (0-10); Neutrophil 67 % (42-75); Platelet Count 348 thou/uL (130-400); Platelet Morphology Comment Appears Adequate; RBC Distribution Width 13.5 % (11.5-14.5); Red Blood Cell (RBC) Count 4.35 mill/uL (4.70-6.10); White Blood Cell (WBC) Count 12.3 thou/uL (4.8-10.8)
[2020-07-30] MEDS: HumaLOG 300 UNITS/3 ML VIAL SC PRN (12:09)
[2020-07-30 12:28] LABS: Anion Gap 12 mmol/L (10-20); BUN (Urea Nitrogen) 29 mg/dL (8.4-25.7); Calc. Creatinine Clearance 53 mL/min (70-130); Calcium 8.9 mg/dL (7.8-10.44); Carbon Dioxide 24 mmol/L (23-31); Chloride 103 mmol/L (98-107); Glucose 178 mg/dL (80-115); Magnesium 1.8 mg/dL (1.6-2.6); Potassium 3.8 mmol/L (3.5-5.1); Sodium 135 mmol/L (136-145)
[2020-07-30] MEDS ORDERED: cefTRIAXone\\ROCEPHIN 2 GM in Sodium Chloride 0.9% 100 ML IVPB SCH (12:45)
[2020-07-30] MEDS: Atorvastatin Calcium 20 MG TAB PO SCH (21:59)
[2020-07-30] MEDS: Gabapentin 100 MG CAP PO SCH (21:59)
[2020-07-30] MEDS: Enoxaparin Sodium 40 MG/0.4 ML SYRINGE SC SCH (21:59)
[2020-07-31 08:45] LABS: Eosinophils 3 % (0-10); Lymphocytes 15 % (21-51); MDiff Complete? YES; Mean Corpuscular HGB CONC 33.8 g/dL (32.0-36.0); Mean Corpuscular Hemoglobin 29.2 pg (27.0-31.0); Mean Corpuscular Volume 86.2 fL (78.0-98.0); Mean Platelet Volume 7.9 fL (7.4-10.4); Monocytes 10 % (0-10); Neutrophil 72 % (42-75); Platelet Count 290 thou/uL (130-400); RBC Distribution Width 13.6 % (11.5-14.5); Red Blood Cell (RBC) Count 4.11 mill/uL (4.70-6.10); White Blood Cell (WBC) Count 11.2 thou/uL (4.8-10.8)
[2020-07-31] MEDS: Lisinopril 10 MG TAB PO SCH (08:55)
[2020-07-31] MEDS: Carvedilol 25 MG TAB PO SCH (08:55)
[2020-07-31] MEDS: hydrALAZINE 25 MG TAB PO SCH ×2 (08:55→15:26)
[2020-07-31] MEDS: Aspirin 81 mg Enteric Coated Tablet PO SCH (08:55)
[2020-07-31] MEDS: Isosorbide Dinitrate 20 MG TAB PO SCH (08:56)
[2020-07-31] MEDS: HumaLOG 300 UNITS/3 ML VIAL SC PRN (12:13)
[2020-07-31] MEDS ORDERED: cefTRIAXone\\ROCEPHIN 2 GM in Sodium Chloride 0.9% 100 ML IVPB SCH (15:00)
[2020-07-31 15:29] VITALS: BP 162/89; TEMP 99.2
[2020-07-31] MEDS ORDERED: Carvedilol 25 MG TAB PO SCH (17:00)
== END 2020-07-31 17:35 | disposition home health service (06) | DRG 871 ==
LOC: ERS 11:07 → 2SW 13:58 → OBSVTOIN 07-11 16:38 → 2NO 07-30 21:37
PROVIDERS: ADMIT Family Medicine; ATTEND Internal Medicine
PROC: 8E0ZXY6 Isolation (ICD-10-PCS; principal; 2020-07-11)
PROC: 02HV33Z Insertion of Infusion Device into Superior Vena Cava, Percutaneous Approach (ICD-10-PCS; 2020-07-22)
PROC: B548ZZA Ultrasonography of Superior Vena Cava, Guidance (ICD-10-PCS; 2020-07-22)
DX: A41.89 Other specified sepsis (principal); U07.1 COVID-19; J12.82 Pneumonia due to coronavirus disease 2019; J96.01 Acute respiratory failure with hypoxia; I16.1 Hypertensive emergency; I24.8 Other forms of acute ischemic heart disease; K86.1 Other chronic pancreatitis; I42.9 Cardiomyopathy, unspecified; N13.8 Other obstructive and reflux uropathy; N17.9 Acute kidney failure, unspecified; N39.0 Urinary tract infection, site not specified; I47.2 Ventricular tachycardia; I13.0 Hypertensive heart and chronic kidney disease with heart failure and stage 1 through stage 4 chronic kidney disease, or unspecified chronic kidney disease; I50.20 Unspecified systolic (congestive) heart failure; B95.61 Methicillin susceptible Staphylococcus aureus infection as the cause of diseases classified elsewhere; E11.22 Type 2 diabetes mellitus with diabetic chronic kidney disease; F17.200 Nicotine dependence, unspecified, uncomplicated; E78.5 Hyperlipidemia, unspecified; E11.40 Type 2 diabetes mellitus with diabetic neuropathy, unspecified; M48.061 Spinal stenosis, lumbar region without neurogenic claudication; N18.30 Chronic kidney disease, stage 3 unspecified; N40.1 Benign prostatic hyperplasia with lower urinary tract symptoms; B95.62 Methicillin resistant Staphylococcus aureus infection as the cause of diseases classified elsewhere; R94.39 Abnormal result of other cardiovascular function study; J44.9 Chronic obstructive pulmonary disease, unspecified; E86.9 Volume depletion, unspecified; D47.3 Essential (hemorrhagic) thrombocythemia; R19.7 Diarrhea, unspecified; E11.649 Type 2 diabetes mellitus with hypoglycemia without coma; R10.9 Unspecified abdominal pain; Z90.49 Acquired absence of other specified parts of digestive tract; Z90.81 Acquired absence of spleen; Z91.14 Patient's other noncompliance with medication regimen
CPT/HCPCS: 36415; 36416; 36569; 71045; 71046; 71250; 72148; 72158; 74176; 74177; 76770; 78451; 78452; 80048; 80053; 80061; 80202; 81001; 82553; 82728; 83036; 83690; 83735; 84484; 85025; 85379; 86140; 87040; 87077; 87086; 87149; 87186; 87324; 87449; 93005; 93010; 93017; 93306; 93798; 96374; 96375; 96376; A9500; C1751; G0378; J0360; J0690; J0696; J1100; J1644; J1650; J1815; J1885; J1940; J2270; J2405; J2785; J3370; J3490; J8540; P9047; Q9967; U0003; U0005

== ENCOUNTER 2020-08-25 16:50 | Emergency (ER) | payer MEDICARE ==
[~2020-08-25 16:50] MED LIST: Iopamidol-370 76% 500 ML 1 ML ONE
[2020-08-25 17:27] LABS: #Basophils 0.1 thou/uL (0.0-0.2); #Eosinphils 0.1 thou/uL (0.0-0.7); #Lymphocytes 3.8 thou/uL (1.20-3.40); #Monocytes 2.4 thou/uL (0.11-0.59); #Neutrophils 10.7 thou/uL (1.40-6.50); %Basophils 0.5 % (0.0-1.0); %Eosinophils 0.5 % (0.0-10.0); %Lymphocytes 22.3 % (21.0-51.0); %Monocytes 14.2 % (0.0-10.0); %Neutrophils 62.5 % (42.0-75.0); Hemoglobin 11.7 g/dL (14.0-18.0); Mean Corpuscular HGB CONC 34.1 g/dL (32.0-36.0); Mean Corpuscular Hemoglobin 29.3 pg (27.0-31.0); Mean Corpuscular Volume 85.8 fL (78.0-98.0); Mean Platelet Volume 8.5 fL (7.4-10.4); Platelet Count 276 thou/uL (130-400); RBC Distribution Width 13.8 % (11.5-14.5); Red Blood Cell (RBC) Count 3.99 mill/uL (4.70-6.10); White Blood Cell (WBC) Count 17.2 thou/uL (4.8-10.8)
[2020-08-25 17:52] LABS: ALT (SGPT) 9 U/L (8-55); AST (SGOT) 12 U/L (5-34); Albumin 3.5 g/dL (3.4-4.8); Alkaline Phosphatase 104 U/L (40-110); Anion Gap 13 mmol/L (10-20); BUN (Urea Nitrogen) 43 mg/dL (8.4-25.7); Bilirubin, Total 0.5 mg/dL (0.2-1.2); Calc. Creatinine Clearance 0 mL/min (70-130); Calcium 9.3 mg/dL (7.8-10.44); Carbon Dioxide 21 mmol/L (23-31); Chloride 106 mmol/L (98-107); Globulin 3.5 g/dL (2.4-3.5); Glucose 134 mg/dL (80-115); Potassium 4.1 mmol/L (3.5-5.1); Sodium 136 mmol/L (136-145)
[2020-08-25] MEDS ORDERED: Morphine 4 MG/ML VIAL ONE (18:27)
[2020-08-25] MEDS ORDERED: Ondansetron PF 4 MG/2 ML Vial ONE (18:27)
[2020-08-25 19:25] LABS: Bilirubin Negative (Negative); Blood, Urine Negative (Negative); Clarity Clear (Clear); Glucose, Urine (Dipstick) Normal (Negative); Ketone, Urine Negative (Negative); Leukocyte Negative Leu/uL (Negative); Nitrite Negative (Negative); Protein, Urine (Dipstick) 20 mg/dL (Neg-Trace); Specific Gravity, Urine 1.021 (1.002-1.036); Urobilinogen Normal mg/dL (Less than 2)
== END 2020-08-25 21:16 | disposition home or self-care (01) ==
LOC: ERS 16:50
DX: R10.9 Unspecified abdominal pain (principal); R10.812 Left upper quadrant abdominal tenderness; R10.814 Left lower quadrant abdominal tenderness; M54.6 Pain in thoracic spine; M54.5 Low back pain; I10 Essential (primary) hypertension; E11.9 Type 2 diabetes mellitus without complications; F17.210 Nicotine dependence, cigarettes, uncomplicated; D72.829 Elevated white blood cell count, unspecified; N28.9 Disorder of kidney and ureter, unspecified
CPT/HCPCS: 36415; 74177; 80053; 81003; 83690; 85025; 87086; 96374; 96375; J2270; J2405; Q9967

== ENCOUNTER 2022-01-30 01:35 | Emergency (ER) | payer MEDICARE ==
[2022-01-30] MEDS ORDERED: cloNIDine 0.1 MG TAB ONE (02:24)
== END 2022-01-30 02:30 ==
LOC: ERS 01:35
DX: I10 Essential (primary) hypertension (principal); E11.9 Type 2 diabetes mellitus without complications; E78.5 Hyperlipidemia, unspecified; F17.210 Nicotine dependence, cigarettes, uncomplicated
CPT/HCPCS: 99283

== ENCOUNTER 2022-05-08 01:35 | Observation (INO) | payer MEDICARE, SELFPAY ==
[2022-05-08] MEDS ORDERED: Nitroglycerin 2% Ointment 1 INCH/1 GM Packet ONE (02:41)
[2022-05-08] MEDS ORDERED: hydrALAZINE 20 MG/ML VIAL ONE (02:41)
[2022-05-08 02:50] LABS: #Basophils 0.1 thou/uL (0.0-0.2); #Eosinphils 0.4 thou/uL (0.0-0.7); #Lymphocytes 3.8 thou/uL (1.20-3.40); #Neutrophils 3.3 thou/uL (1.40-6.50); %Basophils 1.2 % (0.0-1.0); %Eosinophils 4.6 % (0.0-10.0); %Lymphocytes 44.2 % (21.0-51.0); %Monocytes 11.5 % (0.0-10.0); %Neutrophils 38.4 % (42.0-75.0); Hemoglobin 14.3 g/dL (14.0-18.0); Mean Corpuscular Hemoglobin 28.8 pg (27.0-31.0); Mean Corpuscular Volume 87.3 fl (78.0-98.0); Mean Platelet Volume 9.7 fL (7.4-10.4); Platelet Count 247 10x3/uL (130-400); RBC Distribution Width 12.4 % (11.5-14.5); Red Blood Cell (RBC) Count 4.96 mill/uL (4.70-6.10); White Blood Cell (WBC) Count 8.7 10x3/uL (4.8-10.8)
[2022-05-08 04:04] LABS: ALT (SGPT) 20 U/L (8-55); AST (SGOT) 26 U/L (5-34); Albumin 3.7 g/dL (3.4-4.8); Alkaline Phosphatase 166 U/L (40-110); Anion Gap 20 mmol/L (10-20); BUN (Urea Nitrogen) 25 mg/dL (8.4-25.7); Bilirubin, Total 0.2 mg/dL (0.2-1.2); Calc. Creatinine Clearance 0 mL/min (70-130); Calcium 9.5 mg/dL (7.8-10.44); Carbon Dioxide 11 mmol/L (23-31); Chloride 115 mmol/L (98-107); Estimated GFR 40; Globulin 3.8 g/dL (2.4-3.5); Glucose 170 mg/dL (80-115); Lipase 69 U/L (8-78); Protein, Total 7.5 g/dL (5.8-8.1); Sodium 141 mmol/L (136-145)
[2022-05-08] MEDS ORDERED: Ondansetron ODT 4 MG TAB SL PRN (04:45)
[2022-05-08] MEDS ORDERED: Ondansetron PF 4 MG/2 ML Vial IVP PRN (04:45)
[2022-05-08] MEDS ORDERED: Acetaminophen 325 MG TAB PO PRN (04:45)
[2022-05-08] MEDS ORDERED: Senokot S 8.6-50 MG TAB PO PRN (05:30)
[2022-05-08] MEDS ORDERED: Dextrose 5% in Water 1,000 ML IV PRN (05:33)
[2022-05-08] MEDS ORDERED: Dextrose 50% Abboject 50 ML SYRINGE SLOW IVP PRN (05:33)
[2022-05-08] MEDS ORDERED: Sodium Bicarbonate 50 MEQ in Sodium Chloride 0.45% 1,000 ML IV SCH (07:00)
[2022-05-08 07:08] LABS: Lactic Acid 1.3 mmol/L (0.5-2.2)
[2022-05-08 07:21] LABS: Troponin I 0.026 ng/mL (< 0.028)
[2022-05-08 07:50] VITALS: BMI 24.5
[2022-05-08] MEDS: hydrALAZINE 25 MG TAB PO SCH ×3 (09:11→21:48)
[2022-05-08] MEDS: Famotidine 20 MG TAB PO SCH (09:11)
[2022-05-08] MEDS: Isosorbide Dinitrate 20 MG TAB PO SCH ×2 (09:11→21:48)
[2022-05-08] MEDS: Carvedilol 25 MG TAB PO SCH ×2 (09:11→17:53)
[2022-05-08] MEDS: NIFEdipine XL 90 MG TAB PO SCH (09:11)
[2022-05-08] MEDS: Heparin 5,000 UNITS/ML VIAL SC SCH ×3 (09:11→21:49)
[2022-05-08] MEDS: Aspirin 81 mg Enteric Coated Tablet PO SCH (09:11)
[2022-05-08 09:13] LABS: Anion Gap 14 mmol/L (10-20); BUN (Urea Nitrogen) 22 mg/dL (8.4-25.7); Calc. Creatinine Clearance 45 mL/min (70-130); Calcium 9.4 mg/dL (7.8-10.44); Carbon Dioxide 20 mmol/L (23-31); Chloride 108 mmol/L (98-107); Estimated GFR 44; Glucose 211 mg/dL (80-115); Potassium 4.1 mmol/L (3.5-5.1); Sodium 138 mmol/L (136-145)
[2022-05-08 09:31] LABS: Troponin I 0.026 ng/mL (< 0.028)
[2022-05-08] MEDS: HumaLOG 300 UNITS/3 ML VIAL SC PRN ×2 (11:04→18:08)
[2022-05-08 12:05] LABS: Anion Gap 12 mmol/L (10-20); BUN (Urea Nitrogen) 24 mg/dL (8.4-25.7); Calc. Creatinine Clearance 44 mL/min (70-130); Calcium 9.1 mg/dL (7.8-10.44); Carbon Dioxide 21 mmol/L (23-31); Chloride 110 mmol/L (98-107); Estimated GFR 43; Glucose 147 mg/dL (80-115); Potassium 4.1 mmol/L (3.5-5.1); Sodium 139 mmol/L (136-145)
[2022-05-08] MEDS ORDERED: Atorvastatin Calcium 10 MG TAB PO SCH (21:00)
[2022-05-09 05:16] LABS: Hemoglobin 13.2 g/dL (14.0-18.0); Mean Corpuscular HGB CONC 33.9 g/dL (32.0-36.0); Mean Corpuscular Hemoglobin 29.4 pg (27.0-31.0); Mean Corpuscular Volume 86.7 fl (78.0-98.0); Mean Platelet Volume 8.7 fL (7.4-10.4); Platelet Count 290 10x3/uL (130-400); RBC Distribution Width 12.2 % (11.5-14.5); Red Blood Cell (RBC) Count 4.51 mill/uL (4.70-6.10); White Blood Cell (WBC) Count 8.4 10x3/uL (4.8-10.8)
[2022-05-09 05:26] LABS: Anion Gap 12 mmol/L (10-20); BUN (Urea Nitrogen) 29 mg/dL (8.4-25.7); Calc. Creatinine Clearance 34 mL/min (70-130); Calcium 9.1 mg/dL (7.8-10.44); Carbon Dioxide 22 mmol/L (23-31); Chloride 108 mmol/L (98-107); Estimated GFR 32; Glucose 147 mg/dL (80-115); Sodium 138 mmol/L (136-145)
[2022-05-09 06:09] LABS: Eosinophils 4 % (0-10); Lymphocytes 29 % (21-51); MDiff Complete? YES; Monocytes 7 % (0-10); Neutrophil 60 % (42-75); Platelet Morphology Comment Appears Adequate; RBC Morphology Normal
[2022-05-09] MEDS: hydrALAZINE 25 MG TAB PO SCH ×2 (08:16→14:51)
[2022-05-09] MEDS: Heparin 5,000 UNITS/ML VIAL SC SCH ×2 (08:16→14:52)
[2022-05-09] MEDS ORDERED: Regadenoson 0.4 MG/5 ML SYRINGE ONE (09:54)
[2022-05-09] MEDS: NIFEdipine XL 90 MG TAB PO SCH (10:54)
[2022-05-09] MEDS: Aspirin 81 mg Enteric Coated Tablet PO SCH (10:54)
[2022-05-09] MEDS: Famotidine 20 MG TAB PO SCH (10:55)
[2022-05-09] MEDS: Isosorbide Dinitrate 20 MG TAB PO SCH (10:55)
[2022-05-09] MEDS: Carvedilol 25 MG TAB PO SCH (10:55)
[2022-05-09] MEDS: HumaLOG 300 UNITS/3 ML VIAL SC PRN (11:22)
[2022-05-09 12:56] VITALS: BP 135/63; TEMP 97.5
== END 2022-05-09 15:32 ==
LOC: ERS 01:35 → 2NO 04:38
PROVIDERS: ADMIT Internal Medicine; ATTEND Internal Medicine
DX: R07.2 Precordial pain (principal); I13.0 Hypertensive heart and chronic kidney disease with heart failure and stage 1 through stage 4 chronic kidney disease, or unspecified chronic kidney disease; E11.22 Type 2 diabetes mellitus with diabetic chronic kidney disease; N18.31 Chronic kidney disease, stage 3a; I50.20 Unspecified systolic (congestive) heart failure; E11.10 Type 2 diabetes mellitus with ketoacidosis without coma; E78.2 Mixed hyperlipidemia; F17.210 Nicotine dependence, cigarettes, uncomplicated; I08.1 Rheumatic disorders of both mitral and tricuspid valves; R94.39 Abnormal result of other cardiovascular function study; I42.9 Cardiomyopathy, unspecified; Z86.16 Personal history of COVID-19; Z79.4 Long term (current) use of insulin; Z79.82 Long term (current) use of aspirin; Z79.899 Other long term (current) drug therapy; Z90.49 Acquired absence of other specified parts of digestive tract; Z89.022 Acquired absence of left finger(s)
CPT/HCPCS: 70450; 71045; 78452; 80048 ×2; 80053; 82010; 82962 ×2; 83605; 83690; 84484 ×2; 85025 ×2; 93005; 93017; 93306; 96372 ×2; 96374; 99285; A9500; G0378 ×3; J0360; 36415; 36416; J1644; J1815; J2785

== ENCOUNTER 2022-09-16 22:23 | Inpatient (IN) | payer OTHER, SELFPAY ==
[2022-09-16] MEDS ORDERED: Aspirin Chewable 81 MG TAB ONE (23:30)
[2022-09-16] MEDS ORDERED: hydrALAZINE 20 MG/ML VIAL ONE (23:30)
[2022-09-16] MEDS ORDERED: Nitroglycerin 2% Ointment 1 INCH/1 GM Packet ONE (23:30)
[2022-09-17] MEDS ORDERED: Amlodipine 5 MG TAB ONE (00:03)
[2022-09-17 00:21] LABS: Hemoglobin 14.1 g/dL (14.0-18.0); Mean Corpuscular HGB CONC 33.5 g/dL (32.0-36.0); Mean Corpuscular Hemoglobin 27.6 pg (27.0-31.0); Mean Corpuscular Volume 82.5 fl (78.0-98.0); Mean Platelet Volume 10.9 fL (7.4-10.4); Platelet Count 291 10x3/uL (130-400); RBC Distribution Width 15.4 % (11.5-14.5); White Blood Cell (WBC) Count 10.6 10x3/uL (4.8-10.8)
[2022-09-17 00:31] LABS: Delete Auto Diff?? YES; Manual Diff?? YES
[2022-09-17 00:45] LABS: ALT (SGPT) 22 U/L (8-55); AST (SGOT) 24 U/L (5-34); Albumin 3.9 g/dL (3.4-4.8); Alkaline Phosphatase 169 U/L (40-110); Anion Gap 16 mmol/L (10-20); BUN (Urea Nitrogen) 27 mg/dL (8.4-25.7); Bilirubin, Total 0.3 mg/dL (0.2-1.2); Calc. Creatinine Clearance 0 mL/min (70-130); Calcium 10.3 mg/dL (7.8-10.44); Carbon Dioxide 22 mmol/L (23-31); Chloride 105 mmol/L (98-107); Estimated GFR 36; Globulin 3.7 g/dL (2.4-3.5); Glucose 102 mg/dL (80-115); Potassium 4.1 mmol/L (3.5-5.1); Protein, Total 7.6 g/dL (5.8-8.1); Sodium 139 mmol/L (136-145)
[2022-09-17 00:54] LABS: Anisocytosis SLIGHT = 6-15 cells HPF (0-5); Band 1 % (5-11); CellaVision Operator ID LAB.CLH1; Eosinophils 5 % (0-10); Lymphocytes 33 % (21-51); Macrocytosis SLIGHT = 6-15 cells HPF (0-5); Monocytes 11 % (0-10); Neutrophil 47 % (42-75); Platelet Adequacy Comment Platelets Normal; Reactive Lymphocytes 3 % (0-10); Target Cells SLIGHT = 2-5 cells HPF (0-1); Total Cell Count 100
[2022-09-17 01:06] LABS: CKMB 5.2 ng/mL (0-6.6)
[2022-09-17] MEDS ORDERED: Senokot S 8.6-50 MG TAB PO PRN (01:06)
[2022-09-17] MEDS ORDERED: Acetaminophen 325 MG TAB PO PRN (01:06)
[2022-09-17] MEDS ORDERED: Ondansetron ODT 4 MG TAB PO PRN (01:06)
[2022-09-17] MEDS ORDERED: Calcium Carbonate 500 MG ChewTAB PO PRN (01:06)
[2022-09-17] MEDS ORDERED: cloNIDine 0.1 MG TAB PO PRN (01:10)
[2022-09-17 01:25] LABS: Hemoglobin A1c 6.1 % (4.0-6.0)
[2022-09-17 02:59] VITALS: BMI 23.5
[2022-09-17 04:28] LABS: Anion Gap 13 mmol/L (10-20); BUN (Urea Nitrogen) 25 mg/dL (8.4-25.7); Calc. Creatinine Clearance 38 mL/min (70-130); Calcium 9.5 mg/dL (7.8-10.44); Carbon Dioxide 25 mmol/L (23-31); Chloride 105 mmol/L (98-107); Estimated GFR 38; Glucose 128 mg/dL (80-115); Potassium 3.9 mmol/L (3.5-5.1); Sodium 139 mmol/L (136-145); Troponin I 0.048 ng/mL (< 0.028)
[2022-09-17] MEDS ORDERED: Carvedilol 25 MG TAB PO SCH (08:00)
[2022-09-17 08:10] LABS: Troponin I 0.057 ng/mL (< 0.028)
[2022-09-17] MEDS: Aspirin 81 mg Enteric Coated Tablet PO SCH (08:33)
[2022-09-17] MEDS: hydrALAZINE 25 MG TAB PO SCH ×3 (08:33→20:29)
[2022-09-17] MEDS: Famotidine 20 MG TAB PO SCH (08:33)
[2022-09-17] MEDS: Isosorbide Dinitrate 20 MG TAB PO SCH ×2 (08:34→20:29)
[2022-09-17] MEDS ORDERED: Communication Order-Pharmacy FS SCH (09:00)
[2022-09-17] MEDS ORDERED: Sodium Chloride 0.9% 1,000 ML IV SCH (09:00)
[2022-09-17] MEDS ORDERED: NIFEdipine XL 90 MG TAB PO SCH (09:00)
[2022-09-17] MEDS: Carvedilol 6.25 MG TAB PO SCH (16:18)
[2022-09-17] MEDS: Atorvastatin Calcium 10 MG TAB PO SCH (20:29)
[2022-09-17 20:50] LABS: Amphetamine Not Detected (NotDetected); Barbiturates Screen Not Detected (NotDetected); Benzodiazepine Screen Not Detected (NotDetected); Cocaine Metabolite Screen Not Detected (NotDetected); Methadone Not Detected (NotDetected); Methamphetamine Not Detected (NotDetected); Opiate Screen Not Detected (NotDetected); Oxycodone Screen Not Detected (NotDetected); Phencyclidine (PCP) Not Detected (NotDetected); THC/Cannabinoid Screen Not Detected (NotDetected); Tricyclic Screen Not Detected (NotDetected)
[2022-09-18] MEDS: Famotidine 20 MG TAB PO SCH (07:56)
[2022-09-18] MEDS: Carvedilol 6.25 MG TAB PO SCH ×2 (07:56→17:33)
[2022-09-18] MEDS: Aspirin 81 mg Enteric Coated Tablet PO SCH (07:56)
[2022-09-18] MEDS: NIFEdipine XL 60 MG TAB PO SCH (07:57)
[2022-09-18] MEDS: hydrALAZINE 25 MG TAB PO SCH ×3 (07:57→21:01)
[2022-09-18] MEDS: Isosorbide Dinitrate 20 MG TAB PO SCH ×2 (07:57→21:01)
[2022-09-18] MEDS: Atorvastatin Calcium 10 MG TAB PO SCH (21:01)
[2022-09-19] MEDS: Carvedilol 6.25 MG TAB PO SCH ×2 (07:36→16:55)
[2022-09-19] MEDS: NIFEdipine XL 60 MG TAB PO SCH (07:36)
[2022-09-19] MEDS: hydrALAZINE 25 MG TAB PO SCH ×3 (07:37→21:26)
[2022-09-19] MEDS: Famotidine 20 MG TAB PO SCH (07:37)
[2022-09-19] MEDS: Isosorbide Dinitrate 20 MG TAB PO SCH ×2 (07:37→21:27)
[2022-09-19] MEDS: Aspirin 81 mg Enteric Coated Tablet PO SCH (07:37)
[2022-09-19] MEDS ORDERED: Calcium Carbonate 500 MG ChewTAB PO PRN (16:05)
[2022-09-19] MEDS: Atorvastatin Calcium 10 MG TAB PO SCH (21:27)
[2022-09-20 05:31] LABS: #Eosinphils 0.4 thou/uL (0.0-0.7); #Monocytes 1.1 thou/uL (0.11-0.59); #Neutrophils 2.3 thou/uL (1.40-6.50); %Basophils 0.6 % (0.0-1.0); %Eosinophils 6.7 % (0.0-10.0); %Lymphocytes 40.9 % (21.0-51.0); %Monocytes 16.5 % (0.0-10.0); %Neutrophils 35.1 % (42.0-75.0); Hemoglobin 12.7 g/dL (14.0-18.0); Mean Corpuscular HGB CONC 33.1 g/dL (32.0-36.0); Mean Corpuscular Hemoglobin 27.4 pg (27.0-31.0); Mean Corpuscular Volume 82.8 fl (78.0-98.0); Mean Platelet Volume 11.2 fL (7.4-10.4); Platelet Count 281 10x3/uL (130-400); RBC Distribution Width 15.4 % (11.5-14.5); Red Blood Cell (RBC) Count 4.64 mill/uL (4.70-6.10); White Blood Cell (WBC) Count 6.6 10x3/uL (4.8-10.8)
[2022-09-20 05:53] LABS: Anion Gap 13 mmol/L (10-20); BUN (Urea Nitrogen) 30 mg/dL (8.4-25.7); Calc. Creatinine Clearance 33 mL/min (70-130); Calcium 9.1 mg/dL (7.8-10.44); Carbon Dioxide 20 mmol/L (23-31); Chloride 108 mmol/L (98-107); Estimated GFR 32; Glucose 107 mg/dL (80-115); Potassium 4.4 mmol/L (3.5-5.1); Sodium 137 mmol/L (136-145)
[2022-09-20] MEDS ORDERED: Sodium Chloride 0.9% 1,000 ML IV SCH ×2 (06:00→08:04)
[2022-09-20] MEDS: hydrALAZINE 25 MG TAB PO SCH ×2 (06:55→14:48)
[2022-09-20] MEDS: Carvedilol 6.25 MG TAB PO SCH (06:55)
[2022-09-20] MEDS: Aspirin 81 mg Enteric Coated Tablet PO SCH (06:55)
[2022-09-20] MEDS: Famotidine 20 MG TAB PO SCH (06:55)
[2022-09-20] MEDS: NIFEdipine XL 60 MG TAB PO SCH (06:56)
[2022-09-20] MEDS: Isosorbide Dinitrate 20 MG TAB PO SCH (06:56)
[2022-09-20] MEDS ORDERED: Heparin 10,000 UNITS/ 10 ML VIAL ONE (07:03)
[2022-09-20] MEDS ORDERED: Lidocaine 1% (PF) 30 ML VIAL ONE (07:03)
[2022-09-20] MEDS ORDERED: fentaNYL 50 mcg/mL 1 mL Vial ONE (07:03)
[2022-09-20] MEDS ORDERED: Midazolam HCl 2 mg/2 ml Vial ONE (07:03)
[2022-09-20] MEDS ORDERED: Protamine Sulfate 50 MG/5 ML VIAL ONE (07:52)
[2022-09-20] MEDS ORDERED: Sodium Chloride 0.9% 200 ML IV PRN (08:03)
[2022-09-20] MEDS ORDERED: Nitroglycerin 0.4 MG TAB (25 Tab Bottle) SL PRN (08:03)
[2022-09-20] MEDS ORDERED: Acetaminophen/Codeine 30-300mg Tablet PO PRN ×2 (08:03)
[2022-09-20] MEDS ORDERED: Iopamidol 370 76% 100 ML VIAL ONE (09:23)
[2022-09-20 11:53] VITALS: BP 160/75; TEMP 98.9
== END 2022-09-20 14:30 | DRG 287 ==
LOC: EEVIPCON 22:23 → ERS 22:23 → 2SW 09-17 01:24 → OBSVTOIN 09-17 12:01
PROVIDERS: ADMIT Student in an Organized Health Care Education/Training Program; ATTEND Emergency Medicine
PROC: 4A023N7 Measurement of Cardiac Sampling and Pressure, Left Heart, Percutaneous Approach (ICD-10-PCS; principal; 2022-09-20)
PROC: B2111ZZ Fluoroscopy of Multiple Coronary Arteries using Low Osmolar Contrast (ICD-10-PCS; 2022-09-20)
DX: R07.89 Other chest pain (principal); I42.9 Cardiomyopathy, unspecified; I12.9 Hypertensive chronic kidney disease with stage 1 through stage 4 chronic kidney disease, or unspecified chronic kidney disease; E11.22 Type 2 diabetes mellitus with diabetic chronic kidney disease; E78.5 Hyperlipidemia, unspecified; F17.210 Nicotine dependence, cigarettes, uncomplicated; I25.10 Atherosclerotic heart disease of native coronary artery without angina pectoris; E78.00 Pure hypercholesterolemia, unspecified; R77.8 Other specified abnormalities of plasma proteins; N18.30 Chronic kidney disease, stage 3 unspecified; Z79.82 Long term (current) use of aspirin; Z79.899 Other long term (current) drug therapy; Z79.4 Long term (current) use of insulin; Z90.49 Acquired absence of other specified parts of digestive tract; Z90.81 Acquired absence of spleen
CPT/HCPCS: 36415; 36416; 71045; 80048; 80053; 80306; 82553; 83036; 84484; 85025; 85347; 93005; 93454; 96372; 96374; 97139; 99152; C1769; G0378; J0360; J1644; J1650; J2001; J2250; J2720; J3010; J7050; Q9967

== ENCOUNTER 2023-11-21 11:07 | Inpatient (IN) | payer MEDICARE ==
[2023-11-21] MEDS ORDERED: Dextrose 50% Abboject 50 ML SYRINGE ONE (11:12)
[2023-11-21 11:43] LABS: Bacteria/HPF None Seen HPF (None Seen); Bilirubin Negative (Negative); Blood, Urine 1+ (Negative); CAUTI Indications for Culture Alt mental st,lethar; Clarity Clear (Clear); Glucose, Urine (Dipstick) Normal (Negative); Ketone, Urine Negative (Negative); Leukocyte Negative Leu/uL (Negative); Nitrite Negative (Negative); Protein, Urine (Dipstick) 70 mg/dL (Neg-Trace); RBC/HPF 0-3 HPF (0-3); Specific Gravity, Urine 1.012 (1.002-1.036); Squamous Epithelial None Seen HPF (0-3); Urobilinogen Normal mg/dL (Less than 2); WBC/HPF 0-3 HPF (0-3)
[2023-11-21 11:46] LABS: #Basophils 0.03 10x3/uL (0.0-0.2); #Eosinphils Less than 0.03 10x3/uL (0.0-0.7); %Basophils 0.3 % (0.0-1.0); %Eosinophils 0.1 % (0.0-10.0); %Lymphocytes 4.9 % (21.0-51.0); %Monocytes 8.1 % (0.0-10.0); %Neutrophils 86.2 % (42.0-75.0); Hematocrit 34.1 % (42.0-52.0); Hemoglobin 11.3 g/dL (14.0-18.0); Mean Corpuscular HGB CONC 33.1 g/dL (32.0-36.0); Mean Corpuscular Hemoglobin 26.9 pg (27.0-31.0); Mean Corpuscular Volume 81.2 fL (78.0-98.0); Mean Platelet Volume 9.7 fL (7.4-10.4); Platelet Count 330 10x3/uL (130-400); RBC Distribution Width 16.6 % (11.5-14.5)
[2023-11-21 11:50] LABS: Urine Culture Reflex No No
[2023-11-21 12:02] LABS: Prothrombin Time 12.8 sec (12.0-14.7)
[2023-11-21 12:03] LABS: PTT 31.4 sec (22.9-36.1)
[2023-11-21 12:05] LABS: Troponin I 0.068 ng/mL (< 0.028)
[2023-11-21 12:13] LABS: ALT (SGPT) 26 U/L (8-55); AST (SGOT) 27 U/L (5-34); Albumin 3.6 g/dL (3.4-4.8); Alkaline Phosphatase 91 U/L (40-110); Anion Gap 15 mmol/L (10-20); BUN (Urea Nitrogen) 74 mg/dL (8.4-25.7); Bilirubin, Total 0.3 mg/dL (0.2-1.2); CK (CPK) 452 U/L (30-200); Calc. Creatinine Clearance 0 mL/min (70-130); Calcium 9.6 mg/dL (7.8-10.44); Carbon Dioxide 10 mmol/L (23-31); Chloride 118 mmol/L (98-107); Estimated GFR 15; Globulin 4.1 g/dL (2.4-3.5); Glucose 125 mg/dL (80-115); Potassium 5.1 mmol/L (3.5-5.1); Protein, Total 7.7 g/dL (5.8-8.1); Sodium 138 mmol/L (136-145)
[2023-11-21] MEDS ORDERED: hydrALAZINE 20 MG/ML VIAL ONE (14:58)
[2023-11-21 16:04] LABS: Troponin I 0.102 ng/mL (< 0.028)
[2023-11-21 16:42] VITALS: BMI 32.7
[2023-11-21] MEDS ORDERED: Senokot S 8.6-50 MG TAB PO PRN (17:09)
[2023-11-21] MEDS ORDERED: Ondansetron PF 4 MG/2 ML Vial IVP PRN (17:09)
[2023-11-21] MEDS ORDERED: Calcium Carbonate 500 MG ChewTAB PO PRN (17:09)
[2023-11-21] MEDS ORDERED: hydrALAZINE 20 MG/ML VIAL SLOW IVP PRN (17:17)
[2023-11-21] MEDS ORDERED: Glucagon 1 MG/ML KIT IM PRN (17:21)
[2023-11-21] MEDS ORDERED: Dextrose 5% in Water 1,000 ML IV PRN (17:21)
[2023-11-21 18:03] LABS: Troponin I 0.125 ng/mL (< 0.028)
[2023-11-21] MEDS: Dextrose 50% Abboject 50 ML SYRINGE SLOW IVP PRN (18:45)
[2023-11-21] MEDS: Nicotine 21 MG PATCH TD SCH (19:13)
[2023-11-21] MEDS: Sodium Bicarbonate Tab 325 MG TAB PO SCH (21:26)
[2023-11-21] MEDS: Pantoprazole DR 40 MG TAB PO SCH (21:26)
[2023-11-21] MEDS: traZODone HCl 50 MG TAB PO SCH (21:26)
[2023-11-21] MEDS: Atorvastatin Calcium 40 MG TAB PO SCH (21:27)
[2023-11-21] MEDS: Heparin 5,000 UNITS/ML VIAL SC SCH (21:27)
[2023-11-21] MEDS: Dextrose 5%-Lactated Ringers 1,000 ML IV SCH (21:28)
[2023-11-22 06:17] LABS: #Basophils 0.07 10x3/uL (0.0-0.2); %Basophils 0.8 % (0.0-1.0); %Eosinophils 2.9 % (0.0-10.0); %Lymphocytes 26.9 % (21.0-51.0); %Monocytes 17.8 % (0.0-10.0); %Neutrophils 51.4 % (42.0-75.0); Hematocrit 33.1 % (42.0-52.0); Hemoglobin 10.6 g/dL (14.0-18.0); Mean Corpuscular Hemoglobin 26.8 pg (27.0-31.0); Mean Corpuscular Volume 83.6 fL (78.0-98.0); Mean Platelet Volume 9.4 fL (7.4-10.4); Platelet Count 337 10x3/uL (130-400); RBC Distribution Width 16.6 % (11.5-14.5); Red Blood Cell (RBC) Count 3.96 mill/uL (4.70-6.10)
[2023-11-22 06:27] LABS: Hemoglobin A1c 6.2 % (4.0-6.0)
[2023-11-22 06:49] LABS: ALT (SGPT) 23 U/L (8-55); AST (SGOT) 25 U/L (5-34); Albumin 3.1 g/dL (3.4-4.8); Alkaline Phosphatase 86 U/L (40-110); Anion Gap 16 mmol/L (10-20); BUN (Urea Nitrogen) 64 mg/dL (8.4-25.7); Bilirubin, Total 0.3 mg/dL (0.2-1.2); CK (CPK) 415 U/L (30-200); Calc. Creatinine Clearance 26 mL/min (70-130); Calcium 9.3 mg/dL (7.8-10.44); Carbon Dioxide 12 mmol/L (23-31); Cardiac Risk 1.7 (Less than 4.5); Chloride 116 mmol/L (98-107); Cholesterol 144 mg/dl (< 200 Desired); Estimated GFR 16; Globulin 3.8 g/dL (2.4-3.5); Glucose 42 mg/dL (80-115); HDL Cholesterol 86 mg/dL (>60 Neg Risk); LDL Cholesterol, Calculated 54 mg/dL; Potassium 4.5 mmol/L (3.5-5.1); Protein, Total 6.9 g/dL (5.8-8.1); Sodium 139 mmol/L (136-145); Triglycerides 22 mg/dL (Less than 150)
[2023-11-22] MEDS: Aspirin 81 mg Enteric Coated Tablet PO SCH (08:31)
[2023-11-22 10:17] VITALS: BMI 32.7
[2023-11-22] MEDS: hydrALAZINE 25 MG TAB PO SCH (16:35)
[2023-11-22] MEDS: Ferrous Sulfate 325 MG TAB PO SCH (16:36)
[2023-11-22] MEDS: Carvedilol 25 MG TAB PO SCH (16:36)
[2023-11-22] MEDS ORDERED: cloNIDine 0.1 MG TAB PO PRN (21:00)
[2023-11-22] MEDS: Famotidine 20 MG TAB PO SCH (22:12)
[2023-11-22] MEDS: Tamsulosin HCl 0.4 MG CAP PO SCH (22:12)
[2023-11-22] MEDS: Isosorbide Dinitrate 20 MG TAB PO SCH (22:12)
[2023-11-23 08:23] LABS: #Basophils 0.08 10x3/uL (0.0-0.2); %Eosinophils 5.1 % (0.0-10.0); %Lymphocytes 33.5 % (21.0-51.0); %Monocytes 15.4 % (0.0-10.0); %Neutrophils 44.6 % (42.0-75.0); Hematocrit 32.7 % (42.0-52.0); Hemoglobin 10.7 g/dL (14.0-18.0); Mean Corpuscular HGB CONC 32.7 g/dL (32.0-36.0); Mean Corpuscular Hemoglobin 26.9 pg (27.0-31.0); Mean Corpuscular Volume 82.2 fL (78.0-98.0); Mean Platelet Volume 10.1 fL (7.4-10.4); Platelet Count 327 10x3/uL (130-400); RBC Distribution Width 16.2 % (11.5-14.5); Red Blood Cell (RBC) Count 3.98 mill/uL (4.70-6.10)
[2023-11-23] MEDS: Amlodipine 10 MG TAB PO SCH (08:47)
[2023-11-23 09:03] LABS: Anion Gap 12 mmol/L (10-20); BUN (Urea Nitrogen) 59 mg/dL (8.4-25.7); Calc. Creatinine Clearance 25 mL/min (70-130); Carbon Dioxide 16 mmol/L (23-31); Chloride 114 mmol/L (98-107); Estimated GFR 15; Glucose 126 mg/dL (80-115); Potassium 4.7 mmol/L (3.5-5.1); Sodium 137 mmol/L (136-145)
[2023-11-23] MEDS ORDERED: cloNIDine 0.1 MG TAB PO SCH (12:32)
[2023-11-23] MEDS: cloNIDine 0.1 MG TAB PO SCH ×2 (13:28→21:59)
[2023-11-23] MEDS: Amlodipine 5 MG TAB PO SCH (21:29)
[2023-11-24 04:54] LABS: Anion Gap 13 mmol/L (10-20); BUN (Urea Nitrogen) 67 mg/dL (8.4-25.7); Calc. Creatinine Clearance 24 mL/min (70-130); Calcium 9.2 mg/dL (7.8-10.44); Carbon Dioxide 16 mmol/L (23-31); Chloride 112 mmol/L (98-107); Estimated GFR 14; Glucose 146 mg/dL (80-115); Potassium 4.4 mmol/L (3.5-5.1); Sodium 137 mmol/L (136-145)
[2023-11-24 11:46] VITALS: BP 154/83; TEMP 97.5
== END 2023-11-24 16:04 | disposition home or self-care (01) | DRG 637 ==
LOC: ERS 11:07 → SUATTDRO 11:07 → ERHOLD 15:58 → 2SE 17:33
PROVIDERS: ADMIT Internal Medicine; ATTEND Internal Medicine
DX: E11.649 Type 2 diabetes mellitus with hypoglycemia without coma (principal); G93.41 Metabolic encephalopathy; I13.0 Hypertensive heart and chronic kidney disease with heart failure and stage 1 through stage 4 chronic kidney disease, or unspecified chronic kidney disease; E87.20 Acidosis, unspecified; I50.22 Chronic systolic (congestive) heart failure; E78.5 Hyperlipidemia, unspecified; E11.22 Type 2 diabetes mellitus with diabetic chronic kidney disease; I25.10 Atherosclerotic heart disease of native coronary artery without angina pectoris; J44.9 Chronic obstructive pulmonary disease, unspecified; F17.210 Nicotine dependence, cigarettes, uncomplicated; I16.0 Hypertensive urgency; N18.4 Chronic kidney disease, stage 4 (severe); G51.0 Bell's palsy; Z90.89 Acquired absence of other organs; Z79.84 Long term (current) use of oral hypoglycemic drugs; Z79.899 Other long term (current) drug therapy; Z79.82 Long term (current) use of aspirin
CPT/HCPCS: 36415; 36416; 51702; 70450; 70551; 71045; 80048; 80053; 80061; 81001; 82550; 83036; 83880; 84443; 84484; 85025; 85610; 85730; 93005; 93306; 93880; 96365; 96375; 96376; J0360; J1644; J7999